=== PATIENT | female | born 1955 | race Caucasian/White ===

== ENCOUNTER → 2024-03-20 15:55 | Outpatient (REF) | payer MEDICARE, SELFPAY ==
[2024-03-20 14:25] LABS: % Basophils 0.2 % (0-2); % Immature Granulocytes 0.2 % (0-0.5); % Lymphocytes 28.3 % (20.5-51.1); % Monocytes 5.5 % (1.7-9.3); % Neutrophils 65.8 % (42.2-75.2); Absolute Lymphocytes 1.6 10^3/uL (1.2-3.4); Absolute Monocytes 0.3 10^3/uL (0.1-0.6); Absolute Neutrophils 3.6 10^3/uL (1.4-6.5); Hematocrit 43.7 % (37.0-47.0); Mean Corp Hgb Conc. 34.3 g/dL (33.0-37.0); Mean Corpuscular Hgb 29.2 pg (27.0-31.0); Mean Platelet Volume 9.4 fL (7.4-10.4); Platelet Count 207 10^3/uL (130-400); Red Blood Cell Count 5.14 10^6/uL (4.20-5.40); Red Cell Dist. Width 14.6 % (11.5-14.5); White Blood Cell Count 5.5 10^3/uL (4.8-10.8)
[2024-03-20 15:01] LABS: ALT (SGPT) 16 U/L (0-35); AST (SGOT) 29 U/L (14-36); Albumin 3.4 g/dl (3.5-5.0); Alkaline Phosphatase 50 U/L (38-126); Blood Urea Nitrogen 15 mg/dl (7-17); Calcium 9.3 mg/dl (8.4-10.2); Carbon Dioxide 27 mmol/L (22-30); Chloride 104 mmol/L (98-107); Glucose 163 mg/dl (70-99); Potassium 3.5 mmol/L (3.5-5.1); Sodium 138 mmol/L (135-145); Total Bilirubin 0.5 mg/dl (0.2-1.3); Total Protein 5.7 g/dl (6.3-8.2); eGFR > 60.00
== END ==
LOC: OIDL 15:55
PROVIDERS: ATTENDING PHYSICIAN Internal Medicine Hematology & Oncology
DX: C50.919 Malignant neoplasm of unspecified site of unspecified female breast (principal)
CPT/HCPCS: 80053; 85025

== ENCOUNTER → 2024-08-07 15:27 | Outpatient (REF) | payer MEDICARE, SELFPAY | LOC: WDC 15:27 | PROVIDERS: ATTENDING PHYSICIAN Family Medicine Geriatric Medicine; FAMILY PHYSICIAN Family Medicine | DX: Z12.31 Encounter for screening mammogram for malignant neoplasm of breast (principal); C50.411 Malignant neoplasm of upper-outer quadrant of right female breast; Z85.3 Personal history of malignant neoplasm of breast | CPT/HCPCS: 77063; 77067 ==

== ENCOUNTER → 2024-10-28 12:47 | Outpatient (REF) | payer MEDICARE, SELFPAY | LOC: RAD 12:47 | PROVIDERS: ATTENDING PHYSICIAN Pediatrics; FAMILY PHYSICIAN Family Medicine | DX: L50.1 Idiopathic urticaria (principal); R53.83 Other fatigue | CPT/HCPCS: 71046 ==

== ENCOUNTER → 2024-11-28 09:35 | Outpatient (REF) | payer MEDICARE, SELFPAY | LOC: RAD 09:35 | PROVIDERS: ATTENDING PHYSICIAN Internal Medicine Hematology & Oncology; FAMILY PHYSICIAN Family Medicine | DX: C50.919 Malignant neoplasm of unspecified site of unspecified female breast (principal); M85.80 Other specified disorders of bone density and structure, unspecified site; M81.0 Age-related osteoporosis without current pathological fracture; E78.2 Mixed hyperlipidemia; I10 Essential (primary) hypertension | CPT/HCPCS: 77080 ==

== ENCOUNTER 2025-01-24 17:42 | Inpatient (IN) | payer MEDICARE, SELFPAY ==
[2025-01-24 11:27] VITALS: BP 148/92
[2025-01-24 11:51] LABS: % Basophils 0.1 % (0-2); % Immature Granulocytes 0.2 % (0-0.5); % Lymphocytes 29.5 % (20.5-51.1); % Monocytes 6.4 % (1.7-9.3); % Neutrophils 63.8 % (42.2-75.2); Absolute Lymphocytes 2.8 10^3/uL (1.2-3.4); Absolute Monocytes 0.6 10^3/uL (0.1-0.6); Hematocrit 51.3 % (37.0-47.0); Hemoglobin 17.3 g/dL (12.0-16.0); Mean Corp Hgb Conc. 33.7 g/dL (33.0-37.0); Mean Corpuscular Hgb 28.4 pg (27.0-31.0); Mean Corpuscular Volume 84.2 fL (81.0-99.0); Mean Platelet Volume 9.7 fL (7.4-10.4); Nucleated Red Blood Cells % 0 %; Platelet Count 281 10^3/uL (130-400); Red Blood Cell Count 6.09 10^6/uL (4.20-5.40); Red Cell Dist. Width 13.8 % (11.5-14.5); White Blood Cell Count 9.5 10^3/uL (4.8-10.8)
[2025-01-24 12:07] LABS: ALT (SGPT) 22 U/L (0-35); AST (SGOT) 30 U/L (14-36); Albumin 4.4 g/dl (3.5-5.0); Alkaline Phosphatase 65 U/L (38-126); Blood Urea Nitrogen 19 mg/dl (7-17); Carbon Dioxide 32 mmol/L (22-30); Chloride 98 mmol/L (98-107); Glucose 155 mg/dl (70-99); Potassium 3.3 mmol/L (3.5-5.1); Sodium 142 mmol/L (135-145); Total Bilirubin 0.7 mg/dl (0.2-1.3); Total Protein 7.4 g/dl (6.3-8.2); eGFR > 60.00
--- NOTE | 2025-01-24 12:54 | ED.GENMED ---
History of Present Illness
General
Chief Complaint: Change in Mental Status
Time Seen by Provider: 01/24/25 12:42
History of Present Illness
History of Present Illness:
Patient is a 70-year-old woman with history of hypertension, hyperlipidemia presenting to the emergency department with a change in her mental status. Per patient's son and ex- who are at bedside they state for the past few months they have
noticed intermittent issues with her memory. However about 5 days ago she had a sudden decline in her memory with confusion. She has been eating less as well. They noticed that she has been much more weak and has had recurrent falls as well. She
is not on a blood thinner. They went to her primary care doctor who thought that it could be related to a possible infection around her eye as she has been itching it and rubbing it with water. No fevers or chills. No vision changes per the
patient but patient is not a reliable historian. No nausea vomiting. No diarrhea. She has not had a workup for her memory loss in the outpatient setting. Unfortunately patient's son lives with patient is unable to take care of her given the
recurrent falls confusion and memory loss.
Past History
Past History
ED Past Medical History: GERD, HTN, Hypercholesterolemia, Hypothyroidism, Psychiatric (PTSD) and Other (colon polyps)
Social History
Tobacco: Non-smoker
Phy Exam
Physical Exam
Physical Exam:
GENERAL: in no acute distress
HEENT: normocephalic, extraocular movements intact, bilateral periorbital area dry slightly red, is not warm or edematous, moist oral mucosa
NECK: normal inspection
RESPIRATORY: no respiratory distress, clear to auscultation bilaterally
CARDIOVASCULAR: regular rate and rhythm
ABDOMEN/: soft, non-distended, left upper quadrant tenderness to palpation, no rebound or guarding
EXTREMITIES: non-tender, no edema/swelling, excoriations to the right upper extremity most notably with no associated warmth or drainage
NEUROLOGIC: awake and alert, moves all extremities
SKIN: warm
Course
Orders/Labs/Results
Orders:
Orders
01/24/25 11:35
Complete Blood Count/With Diff Urgent
Comprehensive Metabolic Panel Urgent
TSH Reflex To Free T4 Urgent
Comment: ADD ON
01/24/25 12:44
Electrocardiogram (*1) Urgent
Reason for Study: Other
Other Reason for Exam: mental status
EKG- Treatment ONCE
Urinalysis Reflex To Culture Urgent
01/24/25 12:54
CT Abd/pelvis W Iv Cont Urgent
Comment:
Reason For Exam: LUQ tender
CT Head W/o Iv Contrast Urgent
Comment:
Reason For Exam: ams
01/24/25 13:01
Add On- LAB Urgent
Tests Added?: TSH with relfex to T4
Abnormal Lab Results
01/24/25
11:35
RBC 6.09 H 10^6/uL
(4.20-5.40)
Hgb 17.3 H g/dL
(12.0-16.0)
Hct 51.3 H %
(37.0-47.0)
Potassium 3.3 L mmol/L
(3.5-5.1)
Carbon Dioxide 32 H mmol/L
(22-30)
BUN 19 H mg/dl
(7-17)
Glucose 155 H mg/dl
(70-99)
01/24/25 11:35
01/24/25 11:35
Vital Signs
Initial and Last Documented VS:
Initial Vital Signs
Temp Pulse Resp BP Pulse Ox
98.1 F 98 18 148/92 99
01/24/25 11:27 01/24/25 11:27 01/24/25 11:27 01/24/25 11:27 01/24/25 11:27
Last Documented Vital Signs
Temp Pulse Resp BP Pulse Ox
98.1 F 89 22 134/70 97
01/24/25 11:27 01/24/25 13:33 01/24/25 13:33 01/24/25 13:13 01/24/25 13:33
MDM/Problems Addressed
Differential Diagnosis Includes:
Patient is a 70-year-old woman presenting to the emergency department with a change in her mental status that acutely worsened for the past 5 days. Vitals are unremarkable and exam does show left upper quadrant tenderness to palpation as well as
dry slightly irritated/red periorbital areas. It does not look infected on exam. Will check blood work EKG urine and CT scan. Given the sudden change in her confusion and memory patient will need admission for further workup.
*Critical Care Note
Total Time (30-74mins, 75-104mins- exclusive of procedures): Not Applicable
Update Note
Update Note:
Blood work unremarkable. CT scan of the head with chronic lacunar infarct. Patient has not had a stroke workup completed in the past. CT abdomen pelvis negative. EKG per my interpretation normal sinus rhythm. Given patient's change in mental
status has not worsening with past 5 to 6 days patient will need admission for further workup. Discussed with hospitalist who excepted. Thyroid and urine pending
ED Attending Note
-
Portions of this chart may have been created with voice recognition software.� Occasional wrong word or��sound alike� substitutions may have occurred due to the inherent limitations of voice recognition software.
Discharge Plan
Departure
Patient Disposition: Admit
Date of Disposition: 01/24/25
Time of Disposition: 15:26
Presentation/result/management discussed w/ accepting MD/DO: Hospitalist
Discharge Problem:
Change in mental status
Prescriptions:
No Action
levothyroxine 25 MCG tablet
25 mcg PO DAILY
multivitamin with folic acid [Tab-A-Mata] 1 TABLET tablet
1 tab PO DAILY
cetirizine 10 mg Tablet
10 mg PO DAILY
fexofenadine 180 mg Tablet
180 mg PO DAILYPRN PRN (Reason: itching/allergies)
amlodipine 5 mg tablet
5 mg PO DAILY
calcium carbonate 400 mg calcium (1,000 mg) Tablet,Chewable
400 mg PO DAILY
hydrochlorothiazide 12.5 mg capsule
12.5 mg PO DAILY
coenzyme Q10 [Co Q-10] 100 mg Capsule
100 mg PO DAILY
rosuvastatin 5 mg tablet
5 mg PO DAILY
cholecalciferol (vitamin D3) 50 mcg (2,000 unit) Tablet
50 mcg PO DAILY
omega 8-mzk-gpi-fish oil [Fish Oil] 1,000 (120-180) mg Capsule
1 cap PO DAILY
Dupixent Syringe 300 mg/2 mL syringe
300 mg SC Q2W
Referrals:
Darryl Britton, DO [Family Provider] -
Interventions
Interventions:
*Risk Screen - Suicide Last Done: 01/24/25 11:27
*General Assessment Last Done: 01/24/25 11:27
*ED COVID-19 Vaccine History Last Done: 01/24/25 11:27
ED- Neurological Assessment Last Done: 01/24/25 13:38
Discharge Date and Time
Print Language: [place]
[2025-01-24 13:13] VITALS: BP 134/70
--- NOTE | 2025-01-24 16:34 | HPS.HSE ---
Family Physician
-
Family Physician: Darryl Britton
Chief Complaint
-
AMS
History of Present Illness
Patient 70 years old female with history of hypertension, hyperlipidemia hypothyroidism, GERD, PTSD, came into hospital with mental status. By the time of my evaluation patient seems alert and disoriented and knows where she is at but does not know
why she is here. Per ED on discussion with Nataliya she has been having some memory issues over the last 5 days with increased confusion. There was mention of also some infection around the eye. In the ER vital signs stable, normal WBC, hemoglobin
17, potassium 3.3, BUN [address] head shows no acute intracranial abnormalities but moderate white matter hypoattenuation likely sequela of microvascular ischemic disease and small chronic lacunar infarct within the left basal
ganglia. She was referred to hospitalist service for further evaluation.
Medical History
Past Medical History
Past Medical History: Reports Other (Hypertension, hyperlipidemia, GERD, PTSD, probable silent strokes in the past, asthma, breast cancer, obesity, mild aortic stenosis, prediabetes, rash.)
Past Surgical History: Reports Other (Lasix surgery, tonsillectomy, adenoidectomy, sinus surgery, breasts biopsy, left lumpectomy.)
Social History
Tobacco: Non-smoker
Alcohol: None
Drug: None
Family History
Family History: Not pertinent
Allergies / Home Medications
Allergies reflects when Allergies were last updated in [facility].
Home Medications with original date entered in [facility]
Allergy/Medication List:
Allergies
Allergy/AdvReac Type Severity Reaction Status Date / Time
cortisone Allergy hyperactivi Verified 01/24/25 11:31
ty
Sulfa (Sulfonamide Allergy Rash Verified 01/24/25 11:31
Antibiotics)
tobacco Allergy Anaphylaxis Uncoded 01/24/25 11:31
Home Medications
levothyroxine 25 mcg tablet 25 mcg PO DAILY 12/21/18
multivitamin with folic acid 400 mcg tablet (Tab-A-Mata) 1 tab PO DAILY 12/21/18
amlodipine 5 mg tablet 5 mg PO DAILY 01/24/25
calcium carbonate 400 mg PO DAILY 01/24/25
cetirizine 10 mg tablet 10 mg PO DAILY 01/24/25
cholecalciferol (vitamin D3) 50 mcg (2,000 unit) tablet 50 mcg PO DAILY 01/24/25
coenzyme Q10 100 mg capsule (Co Q-10) 100 mg PO DAILY 01/24/25
dupilumab 300 mg/2 mL subcutaneous syringe (Dupixent) 300 mg SC Q2W 01/24/25
fexofenadine 180 mg tablet 180 mg PO DAILYPRN PRN itching/allergies 01/24/25
hydrochlorothiazide 12.5 mg capsule 12.5 mg PO DAILY 01/24/25
omega 5-pds-rin-fish oil 1,000 mg (120 mg-180 mg) capsule (Fish Oil) 1 cap PO DAILY 01/24/25
rosuvastatin 5 mg tablet 5 mg PO DAILY 01/24/25
Review of Systems
-
Unable to obtain full review of systems at this time due to: Dementia (Versus mental status changes)
Physical Exam
Vital Signs
Vital Signs
Temp Pulse Resp BP Pulse Ox
98.1 F 89 22 134/70 97
01/24/25 11:27 01/24/25 13:33 01/24/25 13:33 01/24/25 13:13 01/24/25 13:33
Physical exam:
General: Well Developed, Well Nourished and No Apparent Distress
HEENT: Normocephalic, Atraumatic and Moist Mucous Membranes
Respiratory: Clear to Auscultation; Negative Wheezes, Rales or Rhonchi
Cardiac: Regular Rhythm and S1/S2
GI: Soft, Nontender and Nondistended
Musculoskeletal: No Clubbing, No Cyanosis and No Edema
Skin: Generalized pustular rash
Neuro: Awake, Alert and disoriented, left upper and lower extremity mild weakness, left foot drop, increased tone, bradykinesia+
Psych: Calm
Physical Exam
General: Other
Laboratory Results
-
01/24/25 11:35
01/24/25 11:35
Laboratory Results
Total Bilirubin 0.7 mg/dl (0.2-1.3) 01/24/25 11:35
AST 30 U/L (14-36) 01/24/25 11:35
ALT 22 U/L (0-35) 01/24/25 11:35
Alkaline Phosphatase 65 U/L (38-126) 01/24/25 11:35
Data Reviewed
-
CT Scan: Image Personally Visualized and interpreted
Lab Data: Labs Reviewed by me
Impression/Plan
-
IMPRESSION:
Patient 70 years old female with multiple comorbidities came into the hospital with altered mental status. Altered neurostatus of unclear etiology at increased risk of morbidity and mortality and further workup required as inpatient.
PLAN:
Acute mental status changes:
Unclear etiology but rule out stroke versus cognitive deficits related vs toxic metabolic encephalopathy versus other
Possibility of Parkinson's
Monitor neurological status and NIH
Seen CT scan of the head and some abnormalities consistent with stroke but unclear if chronic or subacute
Neurology consult for further eval-discussed with neurology via [place] text today
Gentle hydration
Plan for MRI of the brain
Start ASA
Check fasting lipids
PT OT SP eval
TSH normal
Check B12 and folate level
Hypertension:
Resume antihypertensives when accurate list of medications
Hypothyroidism:
Resume thyroid replacement when accurate list of medications
Hyperlipidemia:
Resume statins when accurate list of medications
Rash:
Appears to be chronic in nature
DVT prophylaxis:
Lovenox SQ
CODE STATUS:
Full code
Time spent 75 minutes
--- NOTE | 2025-01-24 17:26 | CON.NEURO ---
Neuro Assessment/Plan
Assessment
patient with several months of cognitive impairment, 5 days ago sudden worsening, with falls
exam consistent with Alz at least moderate severity, Parkinsonism, and left facial droop/hemiparesis/foot drop which does not match the left anterior internal capsule stroke
suspect she may have had a stroke 5 days ago that caused her to decompensate
head CT images and report rev'd, moderate atrophy, chronic L anterior internal capsule stroke
Plan
ASA 324 now + 81 mg daily
MRI brain without contrast, MRA head/neck
lipid panel, folate, B12
Consultation
Order
Date of Consultation: 01/24/25
Requesting Provider: Conner Russo
Reason for Consult: memory loss
Subjective/Objective
Subjective Data
Date of Service: January 24, 2025
from ED notes:
Patient is a 70-year-old woman with history of hypertension, hyperlipidemia presenting to the emergency department with a change in her mental status. Per patient's son and ex- who are at bedside they state for the past few months they have
noticed intermittent issues with her memory. However about 5 days ago she had a sudden decline in her memory with confusion. She has been eating less as well. They noticed that she has been much more weak and has had recurrent falls as well. She
is not on a blood thinner. They went to her primary care doctor who thought that it could be related to a possible infection around her eye as she has been itching it and rubbing it with water. No fevers or chills. No vision changes per the
patient but patient is not a reliable historian. No nausea vomiting. No diarrhea. She has not had a workup for her memory loss in the outpatient setting. Unfortunately patient's son lives with patient is unable to take care of her given the
recurrent falls confusion and memory loss.
Patient admits to a little bit of memory loss, says she does basic ADLs and spends her days watching TV, does not help with chores, denies that the rollator in the room is hers, denies recent falls, denies speech changes, weakness, or numbness
Objective Data
Vital Signs
Temp Pulse Resp BP Pulse Ox
36.7 C 89 22 134/70 97
01/24/25 11:27 01/24/25 13:33 01/24/25 13:33 01/24/25 13:13 01/24/25 13:33
Lab Results
01/24/25 11:35
01/24/25 11:35
Sodium 142 mmol/L (135-145) 01/24/25 11:35
Potassium 3.3 mmol/L (3.5-5.1) L 01/24/25 11:35
BUN 19 mg/dl (7-17) H 01/24/25 11:35
Glucose 155 mg/dl (70-99) H 01/24/25 11:35
Calcium 10.0 mg/dl (8.4-10.2) 01/24/25 11:35
Patient Allergies
cortisone Allergy (Verified 01/24/25 11:31)
hyperactivity
Sulfa (Sulfonamide Antibiotics) Allergy (Verified 01/24/25 11:31)
Rash
tobacco Allergy (Uncoded 01/24/25 11:31)
Anaphylaxis
CVA Assessment
Onset of Stroke Symptoms
Onset of symptoms known: No
NIH Stroke Score
Level of Consciousness: 0 - Alert
LOC Questions: 2-Neither correct
LOC Commands: 0-Performs both correctly
Best Horizontal Gaze: 0-Normal
Visual Foreman: 0=Normal, no visual loss
Facial Palsy: 2=Partial paralysis
Motor - Right Arm: 0=No drift 10 seconds
Motor - Left Arm: 1=Drift < 10 seconds
Motor - Right Le-No drift 5 seconds
Motor - Left Le-Drift < 5 seconds
Limb Ataxia: 0-Absent
Sensation: 0-Normal
Best Language: 0-No aphasia
Dysarthria: 0-Normal
Extinction and Inattention: 0-No abnormality
Total Score:: 6
Physical Exam
-
awake and alert, disoriented to age/month, speech clear, poor recollection of recent events, processing speed quick
VFF, EOMI, left facial droop
LUE/LE 4/5 with foot drop; right side full strength
sensation intact touch/pin
DTR diffusely 1+
+cogwheel rigidity, + bradykinesia
Medications
-
Active Medications
Generic Name Dose Route Start Last Admin
Trade Name Freq PRN Reason Stop Dose Admin
Aspirin 81 mg 01/25/25 08:00
Aspirin 81 Mg (Enteric Coated) Tablet PO 02/22/25 07:59
DAILY KALINA
Aspirin 324 mg 01/24/25 17:23
Aspirin 81 Mg Chewable Tablet PO 01/24/25 17:24
NOW STA
Home Medications
�Medication �Instructions �Recorded
levothyroxine 25 mcg tablet 25 mcg PO DAILY 12/21/18
multivitamin with folic acid 400 1 tab PO DAILY 12/21/18
mcg tablet (Tab-A-Mata)
amlodipine 5 mg tablet 5 mg PO DAILY 01/24/25
calcium carbonate 400 mg PO DAILY 01/24/25
cetirizine 10 mg tablet 10 mg PO DAILY 01/24/25
cholecalciferol (vitamin D3) 50 50 mcg PO DAILY 01/24/25
mcg (2,000 unit) tablet
coenzyme Q10 100 mg capsule (Co 100 mg PO DAILY 01/24/25
Q-10)
dupilumab 300 mg/2 mL subcutaneous 300 mg SC Q2W 01/24/25
syringe (Dupixent)
fexofenadine 180 mg tablet 180 mg PO DAILYPRN PRN 01/24/25
itching/allergies
hydrochlorothiazide 12.5 mg capsule 12.5 mg PO DAILY 01/24/25
omega 2-gla-zuf-fish oil 1,000 mg 1 cap PO DAILY 01/24/25
(120 mg-180 mg) capsule (Fish Oil)
rosuvastatin 5 mg tablet 5 mg PO DAILY 01/24/25
[2025-01-24] MEDS: LOW STRENGTH ASPIRIN 324 MG PO (17:54)
[2025-01-24 18:27] VITALS: BP 138/72
[2025-01-24 18:34] VITALS: BMI 28.9
[2025-01-24] MEDS: LOVENOX 40 MG SC (19:17)
[2025-01-24] MEDS: NSS 1000 IV (19:17)
[2025-01-24 19:22] VITALS: BP 130/70
[2025-01-24 21:04] LABS: Folate > 20.0 ng/ml (2.76-20); Vitamin B12 < 159 pg/ml (239-931)
[2025-01-24 23:26] VITALS: BP 135/71
[2025-01-24] MEDS: CYANOCOBALAMIN 1000 MCG IM (23:50)
[2025-01-25] MEDS: REFRESH EYE DROPS (PF) 1 DROPS OPHTH (00:49)
[2025-01-25 00:56] LABS: Urine Albumin 1+ (Neg - Trace); Urine Bilirubin Negative (Negative); Urine Character Clear (Clear); Urine Color Yellow; Urine Glucose Negative (Negative); Urine Ketone 2+ (Negative); Urine Leukocyte 1+ (Negative); Urine Nitrite Negative (Negative); Urine Occult Blood 1+ (Negative); Urine Urobilinogen 1+ (Neg - 1+)
[2025-01-25 01:48] LABS: Urine Squamous Cell >30 /LPF (Few)
[2025-01-25 01:49] LABS: Urine Bacteria Moderate (Negative); Urine Calcium Oxalate Crystals Seen; Urine Mucus Moderate; Urine Red Blood Cell 0-2 /HPF (0-2)
[2025-01-25 03:20] VITALS: BP 135/80
[2025-01-25 07:00] LABS: Hematocrit 48.3 % (37.0-47.0); Hemoglobin 16.7 g/dL (12.0-16.0); Mean Corp Hgb Conc. 34.6 g/dL (33.0-37.0); Mean Corpuscular Hgb 28.4 pg (27.0-31.0); Mean Platelet Volume 9.8 fL (7.4-10.4); Platelet Count 251 10^3/uL (130-400); Red Blood Cell Count 5.89 10^6/uL (4.20-5.40); Red Cell Dist. Width 13.8 % (11.5-14.5); White Blood Cell Count 11.7 10^3/uL (4.8-10.8)
[2025-01-25 07:25] VITALS: BP 121/62
[2025-01-25 07:28] LABS: Blood Urea Nitrogen 13 mg/dl (7-17); Calcium 9.3 mg/dl (8.4-10.2); Carbon Dioxide 24 mmol/L (22-30); Chloride 101 mmol/L (98-107); Estimated Creatinine Clearance 86 ml/min; Glucose 145 mg/dl (70-99); HDL Cholesterol 43 mg/dl; LDL Cholesterol, Calculated 52 mg/dl; Potassium 3.3 mmol/L (3.5-5.1); Sodium 139 mmol/L (135-145); Total Cholesterol 134 mg/dl (50-199); Triglyceride 198 mg/dl (10-149); Very Low Density Lipoprotein 39 mg/dl (0-30); eGFR > 60.00
[2025-01-25] MEDS: ASPIR LOW (ENTERIC COATED) 81 MG PO (09:10)
[2025-01-25] MEDS: KCL 40 MEQ PO ×2 (09:10→13:06)
--- NOTE | 2025-01-25 09:23 | W.PN.HOSP.TC ---
Addendum entered and electronically signed by Conner Russo MD 01/25/25 13:53:
Discussed with ex- and friend and gather more information. She has been having decline for years superimposed over the last 5 days. I came and discussed with patient and family along with neurologist at bedside. MRI of the brain abnormal
and plan is to repeat MRI with gadolinium for further characterization.
Original Note:
Today's Communication/Plan
-
MRI of the brain. IV antibiotics.
Assessment / Plan
Assessment / Plan
Physical exam:
General: Well Developed, Well Nourished and No Apparent Distress
HEENT: Normocephalic, Atraumatic and Moist Mucous Membranes
Respiratory: Clear to Auscultation; Negative Wheezes, Rales or Rhonchi
Cardiac: Regular Rhythm and S1/S2
GI: Soft, Nontender and Nondistended
Musculoskeletal: No Clubbing, No Cyanosis and No Edema
Skin: Generalized pustular rash
Neuro: Awake, Alert and disoriented, left upper and lower extremity mild weakness, left foot drop, increased tone, bradykinesia+
Psych: Calm
A/P:
Acute mental status changes:
Unclear etiology but rule out stroke versus cognitive deficits related vs toxic metabolic encephalopathy versus other
Possibility of Parkinson's
Monitor neurological status and NIH
Seen CT scan of the head and some abnormalities consistent with stroke but unclear if chronic or subacute
Neurology consult for further eval-discussed with neurology via [place] text today
Gentle hydration
Plan for MRI of the brain
Started ASA
Check fasting lipids
PT OT SP eval
Abnormal UA, probable UTI:
Start IV ceftriaxone
WBC up to 11.7
Follow-up cultures
Vitamin B12 deficiency:
Started B12 supplementation
Conjunctivitis:
Tobramycin eye drop
Hypertension:
Resume antihypertensives but hold hctz due to hypokalemia
Hypokalemia:
Replete and trend
Hypothyroidism:
Resume thyroid replacement
tsh ok
Hyperlipidemia:
Resume statins
Rash:
Appears to be chronic in nature
Resume zyrtec
DVT prophylaxis:
Lovenox SQ
CODE STATUS:
Full code
Total time spent on today's encounter was 52 minutes which included time spent in counseling the patient/family regarding diagnosis and treatment plan as listed above, goals of care, and symptom management. Case was discussed with nursing staff,
specialists, and care coordinators/case management. All labs and imaging personally reviewed by me. Remainder the time spent in detailed review of previous records, lab data, imaging, and other medical provider documentation.
Anticipated Discharge: > 48 hours
Subjective/Interval History
-
Date of Service: January 25, 2025
Alert but mildly disoriented. Afebrile
Objective Data
-
Labs:
Laboratory Results
01/25/25
06:32
WBC 11.7 H
Hgb 16.7 H
Hct 48.3 H
Plt Count 251
Sodium 139
Potassium 3.3 L
Chloride 101
Carbon Dioxide 24
BUN 13
Creatinine 0.6
Glucose 145 H
Calcium 9.3
Vital Signs:
Vital Signs
Temp Pulse Resp BP Pulse Ox
98.9 F 98 16 121/62 97
01/25/25 07:25 01/25/25 07:25 01/25/25 07:25 01/25/25 07:25 01/25/25 07:25
I&O
01/24/25 01/25/25 01/26/25
06:59 06:59 06:59
Intake Total 240 / 240
Balance 240 / 240
[2025-01-25] MEDS: NSS (PRESERVATIVE FREE) 0.5 ML IV ×2 (09:48→15:41)
[2025-01-25] MEDS: ATIVAN 1 MG IV ×2 (09:48→13:51)
[2025-01-25] MEDS: ROCEPHIN 1000 MG IV (11:06)
[2025-01-25] MEDS: VITAMIN D3 (cholecalciferol) 50 MCG PO (11:08)
[2025-01-25] MEDS: VITAMIN B-12 1000 MCG PO (11:08)
[2025-01-25] MEDS: CRESTOR 5 MG PO (11:08)
[2025-01-25] MEDS: STERILE WATER FOR INJECTION 10 ML IV ×2 (11:08→13:51)
[2025-01-25] MEDS: ZYRTEC 10 MG PO (11:08)
[2025-01-25 11:19] VITALS: BP 146/71
[2025-01-25] MEDS: SYNTHROID 25 MCG PO (11:29)
[2025-01-25] MEDS: TOBREX 0.3% EYE DROPS 1 DROP OPHTH ×3 (12:53→22:16)
--- NOTE | 2025-01-25 13:46 | PTOTSP ---
Speech Therapy
Presentation: Patient was partially oriented and alert. Patient followed simple commands. Patient's speech and language appeared to be short in length but WNL.
Swallowing Function: Patient was observed with several bites of regular consistency solids and sips of thin liquids in which patient appeared to tolerate as she did not exhibit any overt clinical s/sx of aspiration or difficulty with mastication/
manipulation. Patient denied any dysphagia complaints.
Patient appears to be demonstrating lack of insight as she expressed she is not having memory difficulty or trouble with ADLs. However, per discussion with her son, patient is having difficulty with sequencing and remembering to complete ADLs
(showering, feeding). Patient is forgetting to eat throughout the day and then eating impulsively which may cause her to vomit. Patient's memory difficulties have been occurring for over a month and increased in the past 5 days. Patient's son
recalls patient demonstrating 'slurred speech and right sided facial droop' which resolved within 20 seconds approximately 3-6 weeks ago.
Recommendations:
1) Continuation of regular consistency solids and thin liquids
2) Medications as tolerated
3) Consideration of cognitive evaluation
4) Consideration of speech/ language evaluation
Plan: HR SYSTEMS ANALYST will continue to follow; pending hospitalization.
--- NOTE | 2025-01-25 13:55 | W.PN.NEURO.1 ---
Today's Communication / Plan
-
MRI brain with contrast
Neuro Assessment/Plan
Assessment
patient with several months of cognitive impairment, 5 days ago sudden worsening, with falls
exam consistent with Alz at least moderate severity, Parkinsonism though these cannot be diagnosed in the accuse setting;
left facial droop/hemiparesis/foot drop which does not match the left anterior internal capsule stroke
MRI brain imgs and report reviewed 'There is extensive T2/FLAIR hyperintense signal within the bilateral periventricular white matter at the level of the atrium of the lateral ventricle involving the occipital, parietal and posterior right frontal
lobes as well as extending along the splenium of the corpus callosum. This appears to demonstrate peripherally restricted diffusion. '
Plan
81 mg daily for the chronic stroke
MRI brain with contrast
Subjective/Objective
Subjective Data
Date of Service: January 25, 2025
very sleepy today
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 she sleeps
most of the day wakes up for dinner and watches TV for a few hours
Objective Data
Vital Signs
Temp Pulse Resp BP Pulse Ox
37.1 C 100 17 146/71 96
01/25/25 11:19 01/25/25 11:19 01/25/25 11:19 01/25/25 11:19 01/25/25 11:19
Lab Results
01/25/25 06:32
01/25/25 06:32
Sodium 139 mmol/L (135-145) 01/25/25 06:32
Potassium 3.3 mmol/L (3.5-5.1) L 01/25/25 06:32
BUN 13 mg/dl (7-17) 01/25/25 06:32
Glucose 145 mg/dl (70-99) H 01/25/25 06:32
Calcium 9.3 mg/dl (8.4-10.2) 01/25/25 06:32
LDL Cholesterol, Calc 52 mg/dl 01/25/25 06:32
Vitamin B12 Cancelled 01/24/25 17:15
Patient Allergies
cortisone Allergy (Verified 01/24/25 11:31)
hyperactivity
Sulfa (Sulfonamide Antibiotics) Allergy (Verified 01/24/25 11:31)
Rash
tobacco Allergy (Uncoded 01/24/25 11:31)
Anaphylaxis
Physical Exam
-
disoriented to age/month, speech clear, poor recollection of recent events, processing speed quick
VFF, EOMI, left facial droop
LUE/LE 4/5 with foot drop; right side full strength
sensation intact touch/pin
DTR diffusely 1+
+cogwheel rigidity, + bradykinesia
[2025-01-25 15:41] VITALS: BP 136/79
[2025-01-25] MEDS: NSS IV (16:29)
[2025-01-25] MEDS: LOVENOX 40 MG SC (17:50)
[2025-01-25 19:17] VITALS: BP 143/85
[2025-01-25 23:53] VITALS: BP 138/80
[2025-01-26] MEDS: TOBREX 0.3% EYE DROPS 1 DROP OPHTH ×3 (00:51→20:59)
[2025-01-26 03:09] VITALS: BP 140/80
[2025-01-26] MEDS: SYNTHROID 25 MCG PO (06:26)
--- NOTE | 2025-01-26 07:18 | W.PN.HOSP.TC ---
Addendum entered and electronically signed by Conner Russo MD 01/26/25 13:03:
RN tells me she has not required restraints after ordering so will cancel and reeval
Original Note:
Today's Communication/Plan
-
Neurology reeval. Antibiotic. Psychiatry eval
Assessment / Plan
Assessment / Plan
Physical exam:
General: Acutely ill
HEENT: Normocephalic, Atraumatic and Moist Mucous Membranes. No neck rigidity
Respiratory: Clear to Auscultation; Negative Wheezes, Rales or Rhonchi
Cardiac: Regular Rhythm and S1/S2
GI: Soft, Nontender and Nondistended
Musculoskeletal: No Clubbing, No Cyanosis and No Edema
Skin: Generalized pustular rash
Neuro: Awake, Alert and disoriented, left lower extremity mild weakness, left foot drop, increased tone, bradykinesia+
Psych: Calm
A/P:
Acute mental status changes:
Unclear etiology but rule out stroke versus cognitive deficits related vs toxic metabolic encephalopathy versus ADEM vs MS vs other
MRI of the brain repeated with gadolinium and it shows possible tumefactive demyelination--> awaiting for neurology input.
Discussed with neurology if she needs LP but he said to hold on and will give further recommendations.
Will get psychiatry consult today since she is also requiring restraints-discussed with psychiatry via [place] text today.
Continue monitor neurological status
Continue ASA for stroke prevention
Checking fasting lipids
PT OT SP eval
Discussed with family at bedside today as well as RN and telephonic nurse case manager at bedside.
Abnormal UA, probable UTI:
Continue IV ceftriaxone
WBC 11.7--> 7.4
Follow-up cultures
Vitamin B12 deficiency:
Continue B12 supplementation
Conjunctivitis:
Tobramycin eye drop
Erythrocytosis:
Hemoconcentration versus ?polycythemia
Received IV fluid and Hb went down slightly
Monitor hemoglobin
Hypertension:
Resumed antihypertensives but hold hctz due to hypokalemia
Hypokalemia:
Replete and trend
Hypothyroidism:
Resume thyroid replacement
tsh ok
Hyperlipidemia:
Resume statins
Rash:
Appears to be chronic in nature
Resume zyrtec
She is on Dupixent as outpatient-hold for now until known infection status.
Per family she had skin biopsies in the past with no clear diagnosis.
DVT prophylaxis:
Lovenox SQ
CODE STATUS:
Full code
Total time spent on today's encounter was 52 minutes which included time spent in counseling the patient/family regarding diagnosis and treatment plan as listed above, goals of care, and symptom management. Case was discussed with nursing staff,
specialists, and care coordinators/case management. All labs and imaging personally reviewed by me. Remainder the time spent in detailed review of previous records, lab data, imaging, and other medical provider documentation.
Anticipated Discharge: > 48 hours
Subjective/Interval History
-
Date of Service: January 26, 2025
Patient alert but disoriented and agitated on and off. Remains afebrile.
Objective Data
-
Labs:
Laboratory Results
01/26/25
06:00
WBC Pending
Hgb Pending
Hct Pending
Plt Count Pending
Sodium Pending
Potassium Pending
Chloride Pending
Carbon Dioxide Pending
BUN Pending
Creatinine Pending
Glucose Pending
Calcium Pending
Vital Signs:
Vital Signs
Temp Pulse Resp BP Pulse Ox
97.6 F 100 18 140/80 96
01/26/25 03:09 01/26/25 03:09 01/26/25 03:09 01/26/25 03:09 01/26/25 03:09
I&O
01/25/25 01/26/25 01/27/25
06:59 06:59 06:59
Intake Total 240 / 240 480 / 480
Balance 240 / 240 480 / 480
[2025-01-26 07:30] VITALS: BP 126/79
[2025-01-26 08:41] LABS: % Basophils 0.1 % (0-2); % Immature Granulocytes 0.3 % (0-0.5); % Lymphocytes 30.5 % (20.5-51.1); % Monocytes 3.4 % (1.7-9.3); % Neutrophils 65.7 % (42.2-75.2); Absolute Lymphocytes 2.3 10^3/uL (1.2-3.4); Absolute Monocytes 0.3 10^3/uL (0.1-0.6); Absolute Neutrophils 4.9 10^3/uL (1.4-6.5); Hematocrit 47.6 % (37.0-47.0); Hemoglobin 16.3 g/dL (12.0-16.0); Mean Corp Hgb Conc. 34.2 g/dL (33.0-37.0); Mean Corpuscular Hgb 28.5 pg (27.0-31.0); Mean Corpuscular Volume 83.2 fL (81.0-99.0); Mean Platelet Volume 10.2 fL (7.4-10.4); Nucleated Red Blood Cells % 0 %; Platelet Count 229 10^3/uL (130-400); Red Blood Cell Count 5.72 10^6/uL (4.20-5.40); White Blood Cell Count 7.4 10^3/uL (4.8-10.8)
[2025-01-26] MEDS: VITAMIN B-12 1000 MCG PO (08:58)
[2025-01-26] MEDS: VITAMIN D3 (cholecalciferol) 50 MCG PO (08:58)
[2025-01-26] MEDS: NORVASC 5 MG PO (08:58)
[2025-01-26] MEDS: ASPIR LOW (ENTERIC COATED) 81 MG PO (08:58)
[2025-01-26] MEDS: OSCAL CAL 500 500 MG PO (08:58)
[2025-01-26] MEDS: CRESTOR 5 MG PO (09:01)
[2025-01-26 09:15] LABS: Blood Urea Nitrogen 15 mg/dl (7-17); Calcium 9.2 mg/dl (8.4-10.2); Carbon Dioxide 24 mmol/L (22-30); Chloride 106 mmol/L (98-107); Estimated Creatinine Clearance 86 ml/min; Glucose 141 mg/dl (70-99); Potassium 3.7 mmol/L (3.5-5.1); Sodium 141 mmol/L (135-145); eGFR > 60.00
[2025-01-26] MEDS: TOBREX 0.3% EYE DROPS 2 DROP OPHTH ×3 (10:11→17:36)
[2025-01-26] MEDS: ROCEPHIN 1000 MG IV (10:57)
[2025-01-26] MEDS: BENADRYL 12.5 MG IV (10:58)
[2025-01-26] MEDS: STERILE WATER FOR INJECTION 10 ML IV (10:58)
[2025-01-26 11:30] VITALS: BP 141/67
--- NOTE | 2025-01-26 12:00 | PTCARENOTE ---
at 10:00, IV team notified to place new IV access for IV Rocephin dose. at that time, patient scratching rash lesions on body and appeared uncomfortable. I requested b/l wrist restraint order from Dr. Russo to prevent patient from pulling out IV
access. at 1058, administered PRN Benadryl with good relief. patient able to be redirected and no restraints applied. sat oob in chair multiple times, vss, will continue to monitor.
[2025-01-26 13:46] LABS: Glycohemoglobin (HgbA1c) 6.7 % (4.0-5.6)
--- NOTE | 2025-01-26 13:58 | CM ---
Patient seen at bedside with ex- Damian & his current
Damian states he has been working with civil litigation attorney regards to POA
CM requested once finalized to provide copy
Per looking for LTC placement
Dx: encephalopathy
psychiatry eval, neurology to eval
PMH: hypertension, hyperlipidemia hypothyroidism, GERD, PTSD, came into hospital change ms, frequent falls
Patient lives in a 2 story home with her son
PLOF: Independent, walker
DME: [employer], walker
PT/OT/ST to eval
Denies VN/Rehab
PCP: Dr. Britton
Pharmacy: [facility] [address], [place]
PLAN: anticipate SNF, await PT/OT evals
--- NOTE | 2025-01-26 14:00 | W.PN.UPDATE ---
Update Note
Progress Note Update
Psychiatric evaluation dictated.
Patient presently is calm and out of restraints; she does not remember being agitated but staff report her thrashing about and pulling out iv tubes. She was unable to provide me with any history but her ex was informative. He noticed
beginnings of memory deficits starting 20 years ago but she deteriorated significantly over the past week. She live with her son she has to take care of her including washing her and taking care of her nutritional needs and personal hygiene. She
also cannot walk up stairs and keeps falling.
She saw a psychiatrist after she lost her job about 20 years ago and was apparently on numerous psychotropic meds which he does not recall. She also drank heavily for about five years but stopped on her own. He mother was diagnosed with
schizophrenia.
She has severe loss of immediate recall on mental status exam.
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
She is presently calm but I will order Ativan 1 mg q 6h prn for agitation. She will need placement in a supervised facility.
We will continue F/U.
[2025-01-26 16:00] VITALS: BP 131/69
[2025-01-26] MEDS: LOVENOX 40 MG SC (17:36)
[2025-01-26 18:29] LABS: Homocysteine 26 umol/L (0-15)
--- NOTE | 2025-01-26 19:45 | W.PN.NEURO.1 ---
Today's Communication / Plan
-
try Solumedrol 250 q5 x20 doses - noted prior hyperactivity, however with severity of illness would still try
LP tomorrow
spoke with ex- Damian primary contact re findings, plan for steroids, LP
patient no POA, not legally , next of kin would be [facility]
Neuro Assessment/Plan
Assessment
patient with several months of cognitive impairment, 5 days ago sudden worsening, with falls
exam consistent with Alz at least moderate severity, Parkinsonism though these cannot be diagnosed in the accute setting;
left facial droop/hemiparesis/foot drop which does not match the left anterior internal capsule stroke
MRI brain imgs and report reviewed 'There is extensive T2/FLAIR hyperintense signal within the bilateral periventricular white matter at the level of the atrium of the lateral ventricle involving the occipital, parietal and posterior right frontal
lobes as well as extending along the splenium of the corpus callosum. This appears to demonstrate peripherally restricted diffusion. '
MRI post contrast images and report rev'd, showing peripheral enhancement; lack of surrounding edema, favoring tumefactive demyelination over glioma;
Plan
try Solumedrol 250 q5 x20 doses - noted prior hyperactivity, however with severity of illness would still try
LP tomorrow
spoke with ex- Damian primary contact re findings, plan for steroids, LP
patient no POA, not legally , next of kin would be [facility]
Subjective/Objective
Subjective Data
Date of Service: January 26, 2025
no new complaints
Objective Data
Vital Signs
Temp Pulse Resp BP Pulse Ox
36.8 C 99 16 131/69 96
01/26/25 16:00 01/26/25 16:00 01/26/25 16:00 01/26/25 16:00 01/26/25 16:00
Lab Results
01/26/25 07:32
01/26/25 07:32
Sodium 141 mmol/L (135-145) 01/26/25 07:32
Potassium 3.7 mmol/L (3.5-5.1) 01/26/25 07:32
BUN 15 mg/dl (7-17) 01/26/25 07:32
Glucose 141 mg/dl (70-99) H 01/26/25 07:32
Calcium 9.2 mg/dl (8.4-10.2) 01/26/25 07:32
LDL Cholesterol, Calc 52 mg/dl 01/25/25 06:32
Vitamin B12 Cancelled 01/24/25 17:15
Patient Allergies
cortisone Allergy (Verified 01/24/25 11:31)
hyperactivity
Sulfa (Sulfonamide Antibiotics) Allergy (Verified 01/24/25 11:31)
Rash
tobacco Allergy (Uncoded 01/24/25 11:31)
Anaphylaxis
Physical Exam
-
disoriented to age/month, speech clear, poor recollection of recent events, processing speed quick
VFF, EOMI, left facial droop
LUE/LE 4/5 with foot drop; right side full strength
sensation intact touch/pin
DTR diffusely 1+
+cogwheel rigidity, + bradykinesia
[2025-01-26 20:20] VITALS: BP 138/68
[2025-01-26] MEDS: SOLU-MEDROL PF 250 MG IV (22:31)
[2025-01-26 23:33] VITALS: BP 136/66
[2025-01-27] MEDS: TOBREX 0.3% EYE DROPS 1 DROP OPHTH ×4 (00:24→15:34)
[2025-01-27] MEDS: SOLU-MEDROL PF 250 MG IV ×4 (02:00→20:55)
[2025-01-27] MEDS: ATIVAN 1 MG PO (02:06)
[2025-01-27] MEDS: TOBREX 0.3% EYE DROPS OPHTH (04:11)
[2025-01-27 06:06] LABS: % Basophils 0.1 % (0-2); % Immature Granulocytes 0.5 % (0-0.5); % Lymphocytes 11.8 % (20.5-51.1); % Monocytes 0.2 % (1.7-9.3); % Neutrophils 87.4 % (42.2-75.2); Absolute Neutrophils 7.6 10^3/uL (1.4-6.5); Hematocrit 45.4 % (37.0-47.0); Hemoglobin 15.6 g/dL (12.0-16.0); Mean Corp Hgb Conc. 34.4 g/dL (33.0-37.0); Mean Corpuscular Hgb 28.5 pg (27.0-31.0); Mean Platelet Volume 10.1 fL (7.4-10.4); Nucleated Red Blood Cells % 0 %; Platelet Count 216 10^3/uL (130-400); Red Blood Cell Count 5.47 10^6/uL (4.20-5.40); Red Cell Dist. Width 13.6 % (11.5-14.5); White Blood Cell Count 8.7 10^3/uL (4.8-10.8)
[2025-01-27] MEDS: SYNTHROID 25 MCG PO (06:26)
[2025-01-27 06:32] LABS: Blood Urea Nitrogen 13 mg/dl (7-17); Calcium 9.5 mg/dl (8.4-10.2); Carbon Dioxide 22 mmol/L (22-30); Chloride 105 mmol/L (98-107); Estimated Creatinine Clearance 86 ml/min; Glucose 229 mg/dl (70-99); Potassium 4.2 mmol/L (3.5-5.1); Sodium 141 mmol/L (135-145); eGFR > 60.00
[2025-01-27 07:30] VITALS: BP 128/74
[2025-01-27 07:34] LABS: INR 0.98; PT 13.3 Sec (11.4-14.6)
[2025-01-27] MEDS: NORVASC 5 MG PO (08:59)
[2025-01-27] MEDS: VITAMIN B-12 1000 MCG PO (08:59)
[2025-01-27] MEDS: CRESTOR 5 MG PO (08:59)
[2025-01-27] MEDS: VITAMIN D3 (cholecalciferol) 50 MCG PO (08:59)
[2025-01-27] MEDS: ASPIR LOW (ENTERIC COATED) 81 MG PO (08:59)
[2025-01-27] MEDS: OSCAL CAL 500 500 MG PO (09:00)
[2025-01-27] MEDS: ROCEPHIN 1000 MG IV (10:06)
[2025-01-27] MEDS: STERILE WATER FOR INJECTION 10 ML IV (10:07)
[2025-01-27 12:09] LABS: Glucose - Point of Care 287 mg/dl (70-99)
[2025-01-27] MEDS: NOVOLOG FLEXPEN-LOW RESISTANCE 3 UNITS SC ×2 (13:13→17:42)
[2025-01-27 13:35] VITALS: BP 138/70; BP_SYST 107
--- NOTE | 2025-01-27 13:39 | W.PN.HOSP.TC ---
Today's Communication/Plan
-
LP tomorrow
Assessment / Plan
Assessment / Plan
Impression:
70 years old female with hypertension hyperlipidemia presented with altered mental status of unclear etiology.� She has chronic decline for months but acutely decompensated recently.� Neurology on board.� MRI of the brain with tumefactive
demyelination.� Possible UTI on IV Rocephin awaiting for cultures.� Mental status improved, started on empiric dexamethasone.
For LP
Assessment/plan:
Acute mental status changes/acute metabolic encephalopathy
Unclear etiology but rule out stroke versus cognitive deficits related vs toxic metabolic encephalopathy versus ADEM vs MS vs other
MRI of the brain repeated with gadolinium and it shows possible tumefactive demyelination--> awaiting for neurology input.
Discussed with neurology if she needs LP but he said to hold on and will give further recommendations.
Will get psychiatry consult today since she is also requiring restraints-discussed with psychiatry via [place] text today.
Continue monitor neurological status
Continue ASA for stroke prevention
Checking fasting lipids
PT OT SP eval
Discussed with family at bedside today as well as RN and case packer and sealer at bedside.
For LP tomorrow
Check ammonia
Abnormal UA, probable UTI:
Continue IV ceftriaxone
WBC 11.7--> 7.4
Urine culture shows possible contaminant
Vitamin B12 deficiency:
Continue B12 supplementation
Conjunctivitis:
Tobramycin eye drop
Erythrocytosis:
Hemoconcentration versus ?polycythemia
Received IV fluid and Hb went down slightly
Monitor hemoglobin
Hypertension:
Resumed antihypertensives but hold hctz due to hypokalemia
Hypokalemia:
Replete and trend
Hypothyroidism:
Resume thyroid replacement
tsh within normal
History of hyperlipidemia
Continue statin
Rash:
Appears to be chronic in nature
Resume zyrtec
She is on Dupixent as outpatient-hold for now until known infection status.
Per family she had skin biopsies in the past with no clear diagnosis.
CODE STATUS: Full code
DVT prophylaxis: Lovenox
Diet: Cardiac diet
Family communication: Discussed with Ex- at bedside
Total time spent on today's encounter was 65 minutes which included time spent in counseling the patient/family regarding diagnosis and treatment plan as listed above, goals of care, and symptom management. Case was discussed with nursing staff,
specialists, and care coordinators/case management. All labs and imaging personally reviewed by me. Remainder the time spent in detailed review of previous records, lab data, imaging, and other medical provider documentation.
Anticipated Discharge: > 48 hours
Subjective/Interval History
-
Date of Service: January 27, 2025
Patient seen and examined at bedside by me today twice, early during morning rounds and later on met with family including ex- and his .
Improved mental status after starting steroids.
Elevated blood sugar, started on sliding scale.
Patient denies chest pain or shortness of breath.
More awake but not fully oriented.
Objective Data
-
Labs:
Laboratory Results
01/27/25 01/27/25
05:28 07:16
WBC 8.7
Hgb 15.6
Hct 45.4
Plt Count 216
PT 13.3
INR 0.98
Sodium 141
Potassium 4.2
Chloride 105
Carbon Dioxide 22
BUN 13
Creatinine 0.5 L
Glucose 229 H
Calcium 9.5
Vital Signs:
Vital Signs
Temp Pulse Resp BP Pulse Ox
97.6 F 97 18 128/74 96
01/27/25 07:30 01/27/25 07:30 01/27/25 07:30 01/27/25 07:30 01/27/25 07:30
I&O
01/26/25 01/27/25 01/28/25
06:59 06:59 06:59
Intake Total 480 / 480 840 / 840
Balance 480 / 480 840 / 840
Physical Exam
-
General: Comfortable
HEENT: Normocephalic, Atraumatic, Moist Mucous Membranes, No Ptosis, PERRLA and Nose Appears Normal
Respiratory: Rales and Non Labored Respirations
Cardiac: Regular Rhythm and S1/S2
Breast: Deferred by me
GI: Soft, Nontender, Nondistended and Normal Bowel Sounds
Genito-urinary: No Costovertebral Tender
Musculoskeletal: No Clubbing, No Cyanosis and No Edema
Skin: Rash (Diffuse maculopapular rash)
Neuro: Awake, AO x 3, No Motor Deficits and Other (Not fully oriented)
Psych: Calm and Confused
Data Reviewed
-
Diagnostic Radiology: Image personally visualized and interpreted and Report Reviewed by me
CT Scan: Image personally visualized and interpreted and Report Reviewed by me
Ultrasound: Image personally visualized and interpreted and Report Reviewed by me
MRI: Image personally visualized and interpreted and Report Reviewed by me
Medical Tests (Nuc Med, Echo etc): Image personally visualized and interpreted and Report Reviewed by me
Labs: Labs Reviewed by me
Old Records: Reviewed
[2025-01-27 14:21] VITALS: BP 122/65
--- NOTE | 2025-01-27 14:45 | CON.NEURO ---
Neuro Assessment/Plan
Assessment
patient with several months of cognitive impairment, 5 days ago sudden worsening, with falls
exam consistent with Alz at least moderate severity, Parkinsonism though these cannot be diagnosed in the accute setting;
left facial droop/hemiparesis/foot drop which does not match the left anterior internal capsule stroke
MRI brain imgs and report reviewed 'There is extensive T2/FLAIR hyperintense signal within the bilateral periventricular white matter at the level of the atrium of the lateral ventricle involving the occipital, parietal and posterior right frontal
lobes as well as extending along the splenium of the corpus callosum. This appears to demonstrate peripherally restricted diffusion. '
MRI post contrast images and report rev'd, showing peripheral enhancement; lack of surrounding edema, favoring tumefactive demyelination over glioma;
Plan
try Solumedrol 250 q5 x20 doses - noted prior hyperactivity, however with severity of illness would still try
LP tomorrow
spoke with ex- Damian primary contact re findings, plan for steroids, LP
patient no POA, not legally , next of kin would be sonChito
Consultation
Order
Date of Consultation: 01/27/25
Neurology follow-up note
HPI: This is a 70-year-old woman who presented to [facility] on January 24, 2025 with encephalopathy.
The patient reports no complaints.
According to Mr. Angel, patient's ex-spouse the patient has had progressive cognitive decline for the last several years but significantly worsened over the past 2 weeks.
On , she was unable to identify her clothing, location, or destination, and barely recognized her ex-. Her hygiene has become very poor, and she is now incontinent. The patient's mobility has drastically declined over the past 2
years, requiring her to use pinto or furniture for support when walking. She now needs assistance or a walker to ambulate.
For the past 18 months, Franny has been dealing with a condition (she had skin biopsy and is under care of Dr. Stock). She has been receiving Dupixent injections every two weeks for about 2 months, administered by her son. This treatment has
provided some relief from itching.
Ms. Angel has a history of MDD and PTSD as well as alcohol abuse. She was drinking heavily for about 5 years, but reportedly stopped around 2009. During that period, she experienced frequent falls, often hitting her head. She was reportedly
treated with heavy heavy antipsychotics 'as well as clonazepam and Ativan.
Brain MRI w/wo jayro(01/25/2025)�extensive T2/FLAIR hyperintense signal within the bilateral periventricular white matter at the level of the atrium of the lateral ventricle involving the occipital, parietal and posterior right frontal lobes as well
as extending along the splenium of the corpus callosum with peripheral enhancement and restriction DWI sequence.
PDMP�no recently prescribed medications
Labs: Vitamin B12�159, Hemoglobin A1c�6.7, normal sodium, creatinine,
CSF�protein�160, glucose�118, normal cell count.
PMH:prurigo nodularis? 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
PSH: LASIK surgery, tonsillectomy, L mastectomy, sinus surgery,
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
FH: mother, MGM-schizophrenia,
All: Cortisone, sulfas,
ROS: Constitutional: Negative. Negative for chills, fever and unexpected weight change.
Skin: Positive for rash
Neurological: Positive for encephalopathy, imbalance, negative for headache
General: Well developed. In no acute distress. Unkept
Cardio: Regular rate and rhythm without murmur. Extremities are without cyanosis or edema.
Neuro:
Mental Status: Alert, oriented to name, not to the age, date of , year, months. Knew the current president's name. Follows simple requests. Increased processing time. Poor attention and comprehension.
Cranial Nerves: Pupils are equally round and reactive to light. Horizontal EOMs full. Blink to threat bilaterally. No ptosis. No nystagmus. Face symmetric. Normal hearing AU. The palate elevated well. SCMs and traps 5/5. Tongue midline.
No dysarthria.
Motor: Moves all limbs antigravity purposefully
Reflexes: Negative grasp bilaterally
Sensory: Limited exam due to breath
Coordination: No tremors myoclonic movements
Gait: deferred
Assessment and Plan:
I. Chronic progressive encephalopathy (metabolic, toxic,?demyelinating)
II. Subcortical bilateral occipital, parietal frontal as well as corpus callosum enhancing signal abnormality. Differential diagnosis includes demyelinating versus neoplastic versus infectious. Dupilumab has been published to be associated with
[employer] demyelination. https://pmc.ncbi.nlm.nih.gov/articles/VUL5075493/
III. B12 deficiency
IV. MDD, PTSD, history of EtOH use disorder
-Fall precautions
-Follow-up CSF OCB, MBB, cytology
-Please obtain CA�T spine MRI with and without jayro
-Check MS mimickers
-Continue IV steroids
-Would hold Dupilumab therapy for now
-Start IV Thiamine after drawing vitamin B1 level
-Continue parenteral vitamin B12
-Will follow
I personally reviewed all radiology and labs along with past medical records pertinent to current medical problems. Total time spent in patient care is 60 minutes.
Thank you for allowing us to participate in the care of this patient. We will continue to follow. Please do not hesitate to contact us with any questions or concerns.
Subjective/Objective
Subjective Data
Date of Service: January 27, 2025
Objective Data
Vital Signs
Temp Pulse Resp BP Pulse Ox
36.6 C 112 18 122/65 95
01/27/25 13:35 01/27/25 14:21 01/27/25 14:21 01/27/25 14:21 01/27/25 13:35
Lab Results
01/27/25 05:28
01/27/25 05:28
PT 13.3 Sec (11.4-14.6) 01/27/25 07:16
INR 0.98 01/27/25 07:16
Sodium 141 mmol/L (135-145) 01/27/25 05:28
Potassium 4.2 mmol/L (3.5-5.1) 01/27/25 05:28
BUN 13 mg/dl (7-17) 01/27/25 05:28
Glucose 229 mg/dl (70-99) H 01/27/25 05:28
Calcium 9.5 mg/dl (8.4-10.2) 01/27/25 05:28
LDL Cholesterol, Calc 52 mg/dl 01/25/25 06:32
Vitamin B12 Cancelled 01/24/25 17:15
Patient Allergies
cortisone Allergy (Verified 01/24/25 11:31)
hyperactivity
Sulfa (Sulfonamide Antibiotics) Allergy (Verified 01/24/25 11:31)
Rash
tobacco Allergy (Uncoded 01/24/25 11:31)
Anaphylaxis
Medications
-
Active Medications
Generic Name Dose Route Start Last Admin
Trade Name Freq PRN Reason Stop Dose Admin
Amlodipine Besylate 5 mg 01/26/25 08:00 01/27/25 08:59
Amlodipine 5 Mg Tablet PO 02/23/25 07:59 5 mg
DAILY KALINA Administration
Artificial Tears 1 drops 01/25/25 00:27 01/25/25 00:49
Artificial Tears Pf (Refresh) 10 Drop Droperette OPHTH 02/22/25 00:26 1 drops
QIDPRN PRN Administration
dryness
Aspirin 81 mg 01/25/25 08:00 01/27/25 08:59
Aspirin 81 Mg (Enteric Coated) Tablet PO 02/22/25 07:59 81 mg
DAILY KALINA Administration
Bisacodyl 10 mg 01/24/25 18:25
Bisacodyl 10 Mg Rectal Suppository RECTAL 02/21/25 18:24
[id number] PRN
constipation
Calcium Carbonate 500 mg 01/26/25 08:00 01/27/25 09:00
Calcium Carbonate 500 Mg Tablet PO 02/23/25 07:59 500 mg
DAILY KALINA Administration
Ceftriaxone Sodium 1,000 mg 01/25/25 10:00 01/27/25 10:06
Ceftriaxone 1000 Mg / 10 Ml Vial IV 1,000 mg
Q24H KALINA Administration
Cetirizine HCl 10 mg 01/25/25 10:00 01/25/25 11:08
Cetirizine Hcl 10 Mg Tablet PO 02/22/25 09:59 10 mg
DAILY KALINA Administration
Cholecalciferol 50 mcg 01/25/25 10:00 01/27/25 08:59
Cholecalciferol (Vitamin D3) 50 Mcg Tablet (2,000 Units) PO 02/22/25 09:59 50 mcg
DAILY KALINA Administration
Cyanocobalamin 1,000 mcg 01/25/25 10:00 01/27/25 08:59
Cyanocobalamin 1,000 Mcg Tablet PO 02/22/25 09:59 1,000 mcg
DAILY KALINA Administration
Dextrose 12.5 grams 01/27/25 11:00
Dextrose 50% (0.5 Grams/Ml) 50 Ml Syringe IV 02/24/25 10:59
[id number] PRN
hypoglycemia
Protocol
Diphenhydramine HCl 12.5 mg 01/25/25 15:19 01/26/25 10:58
Diphenhydramine 50 Mg/Ml 1 Ml Vial IV 02/22/25 15:18 12.5 mg
Q4HPRN PRN Administration
itchiness
Enoxaparin Sodium 40 mg 01/24/25 18:25 01/26/25 17:36
Enoxaparin Sodium 40 Mg/0.4 Ml Syringe SC 02/21/25 18:24 40 mg
QPM KALINA Administration
Glucagon 1 mg 01/27/25 11:00
Glucagon 1 Mg Vial IM 02/24/25 10:59
PRN PRN
hypoglycemia - no IV access
Protocol
Insulin Aspart 0 units 01/27/25 11:30 01/27/25 13:13
Insulin Aspart Low Resistance 300 Units/3 Ml Pen.Injctr SC 02/24/25 11:29 3 units
AC KALINA Administration
Protocol
Levothyroxine Sodium 25 mcg 01/25/25 10:00 01/27/25 06:26
Levothyroxine 25 Mcg Tablet PO 02/22/25 09:59 25 mcg
DAILY@0600 KALINA Administration
Lorazepam 1 mg 01/26/25 13:58 01/27/25 02:06
Lorazepam 1 Mg Tablet PO 02/23/25 13:59 1 mg
Q6H PRN Administration
agitation
Methylprednisolone Sodium Succinate 250 mg 01/26/25 20:00 01/27/25 08:59
Methylprednisolone Pf 125 Mg/2 Ml Vial IV 01/31/25 14:01 250 mg
Q6H KALINA Administration
Polyethylene Glycol 17 grams 01/24/25 18:25
Polyethylene Glycol Powder 17 Grams Packet PO 02/21/25 18:24
DAILYPRN PRN
constipation
Rosuvastatin Calcium 5 mg 01/25/25 10:00 01/27/25 08:59
Rosuvastatin (Crestor) 5 Mg Tablet PO 02/22/25 09:59 5 mg
DAILY KALINA Administration
Senna/Docusate Sodium 1 tablet 01/24/25 18:25
Docusate W/Senna (Ophelia-Colace) Tablet PO 02/21/25 18:24
BIDPRN PRN
constipation
Sodium Chloride 0 flush 01/24/25 18:00
Sodium Chloride 0.9% (Flush) Syringe IV 02/21/25 17:59
PER PROTOCOL KALINA
Sterile Water 10 ml 01/25/25 10:00 01/27/25 10:07
Sterile Water For Injection 10 Ml Vial IV 02/22/25 09:59 10 ml
DAILY@1000 KALINA Administration
Tobramycin Sulfate 0 drop 01/25/25 12:00 01/27/25 12:26
Tobramycin 0.3% (Ophthalmic Solution) 5 Ml Bottle OPHTH 02/04/25 11:59 1 drop
Q4HWA KALINA Administration
Home Medications
�Medication �Instructions �Recorded
levothyroxine 25 mcg tablet 25 mcg PO DAILY 12/21/18
multivitamin with folic acid 400 1 tab PO DAILY 12/21/18
mcg tablet (Tab-A-Mata)
amlodipine 5 mg tablet 5 mg PO DAILY 01/24/25
calcium carbonate 400 mg PO DAILY 01/24/25
cetirizine 10 mg tablet 10 mg PO DAILY 01/24/25
cholecalciferol (vitamin D3) 50 50 mcg PO DAILY 01/24/25
mcg (2,000 unit) tablet
coenzyme Q10 100 mg capsule (Co 100 mg PO DAILY 01/24/25
Q-10)
dupilumab 300 mg/2 mL subcutaneous 300 mg SC Q2W 01/24/25
syringe (Dupixent)
fexofenadine 180 mg tablet 180 mg PO DAILYPRN PRN 01/24/25
itching/allergies
hydrochlorothiazide 12.5 mg capsule 12.5 mg PO DAILY 01/24/25
omega 5-cnb-bap-fish oil 1,000 mg 1 cap PO DAILY 01/24/25
(120 mg-180 mg) capsule (Fish Oil)
rosuvastatin 5 mg tablet 5 mg PO DAILY 01/24/25
Vital Signs and Labs
-
Vital Signs and Labs:
Vital Signs
Temp Pulse Resp BP Pulse Ox
36.4 C 90 16 132/88 96
01/27/25 15:30 01/27/25 15:30 01/27/25 15:30 01/27/25 15:30 01/27/25 15:30
Lab Results
01/27/25 05:28
01/27/25 05:28
PT 13.3 Sec (11.4-14.6) 01/27/25 07:16
INR 0.98 01/27/25 07:16
Sodium 141 mmol/L (135-145) 01/27/25 05:28
Potassium 4.2 mmol/L (3.5-5.1) 01/27/25 05:28
BUN 13 mg/dl (7-17) 01/27/25 05:28
Glucose 229 mg/dl (70-99) H 01/27/25 05:28
Calcium 9.5 mg/dl (8.4-10.2) 01/27/25 05:28
LDL Cholesterol, Calc 52 mg/dl 01/25/25 06:32
Vitamin B12 Cancelled 01/24/25 17:15
Medications
-
Medications:
Generic Name Dose Route Start Last Admin
Trade Name Freq PRN Reason Stop Dose Admin
Amlodipine Besylate 5 mg 01/26/25 08:00 01/27/25 08:59
Amlodipine 5 Mg Tablet PO 02/23/25 07:59 5 mg
DAILY KALINA Administration
Artificial Tears 1 drops 01/25/25 00:27 01/25/25 00:49
Artificial Tears Pf (Refresh) 10 Drop Droperette OPHTH 02/22/25 00:26 1 drops
QIDPRN PRN Administration
dryness
Aspirin 81 mg 01/25/25 08:00 01/27/25 08:59
Aspirin 81 Mg (Enteric Coated) Tablet PO 02/22/25 07:59 81 mg
DAILY KALINA Administration
Bisacodyl 10 mg 01/24/25 18:25
Bisacodyl 10 Mg Rectal Suppository RECTAL 02/21/25 18:24
[id number] PRN
constipation
Calcium Carbonate 500 mg 01/26/25 08:00 01/27/25 09:00
Calcium Carbonate 500 Mg Tablet PO 02/23/25 07:59 500 mg
DAILY KALINA Administration
Ceftriaxone Sodium 1,000 mg 01/25/25 10:00 01/27/25 10:06
Ceftriaxone 1000 Mg / 10 Ml Vial IV 1,000 mg
Q24H KALINA Administration
Cetirizine HCl 10 mg 01/25/25 10:00 01/25/25 11:08
Cetirizine Hcl 10 Mg Tablet PO 02/22/25 09:59 10 mg
DAILY KALINA Administration
Cholecalciferol 50 mcg 01/25/25 10:00 01/27/25 08:59
Cholecalciferol (Vitamin D3) 50 Mcg Tablet (2,000 Units) PO 02/22/25 09:59 50 mcg
DAILY KALINA Administration
Cyanocobalamin 1,000 mcg 01/25/25 10:00 01/27/25 08:59
Cyanocobalamin 1,000 Mcg Tablet PO 02/22/25 09:59 1,000 mcg
DAILY KALINA Administration
Dextrose 12.5 grams 01/27/25 11:00
Dextrose 50% (0.5 Grams/Ml) 50 Ml Syringe IV 02/24/25 10:59
[id number] PRN
hypoglycemia
Protocol
Diphenhydramine HCl 12.5 mg 01/25/25 15:19 01/26/25 10:58
Diphenhydramine 50 Mg/Ml 1 Ml Vial IV 02/22/25 15:18 12.5 mg
Q4HPRN PRN Administration
itchiness
Enoxaparin Sodium 40 mg 01/24/25 18:25 01/27/25 17:35
Enoxaparin Sodium 40 Mg/0.4 Ml Syringe SC 02/21/25 18:24 40 mg
QPM KALINA Administration
Glucagon 1 mg 01/27/25 11:00
Glucagon 1 Mg Vial IM 02/24/25 10:59
PRN PRN
hypoglycemia - no IV access
Protocol
Insulin Aspart 0 units 01/27/25 11:30 01/27/25 17:42
Insulin Aspart Low Resistance 300 Units/3 Ml Pen.Injctr SC 02/24/25 11:29 3 units
AC KALINA Administration
Protocol
Levothyroxine Sodium 25 mcg 01/25/25 10:00 01/27/25 06:26
Levothyroxine 25 Mcg Tablet PO 02/22/25 09:59 25 mcg
DAILY@0600 KALINA Administration
Lorazepam 1 mg 01/26/25 13:58 01/27/25 02:06
Lorazepam 1 Mg Tablet PO 02/23/25 13:59 1 mg
Q6H PRN Administration
agitation
Methylprednisolone Sodium Succinate 250 mg 01/26/25 20:00 01/27/25 14:55
Methylprednisolone Pf 125 Mg/2 Ml Vial IV 01/31/25 14:01 250 mg
Q6H KALINA Administration
Polyethylene Glycol 17 grams 01/24/25 18:25
Polyethylene Glycol Powder 17 Grams Packet PO 02/21/25 18:24
DAILYPRN PRN
constipation
Rosuvastatin Calcium 5 mg 01/25/25 10:00 01/27/25 08:59
Rosuvastatin (Crestor) 5 Mg Tablet PO 02/22/25 09:59 5 mg
DAILY KALINA Administration
Senna/Docusate Sodium 1 tablet 01/24/25 18:25
Docusate W/Senna (Ophelia-Colace) Tablet PO 02/21/25 18:24
BIDPRN PRN
constipation
Sodium Chloride 0 flush 01/24/25 18:00
Sodium Chloride 0.9% (Flush) Syringe IV 02/21/25 17:59
PER PROTOCOL KALINA
Sterile Water 10 ml 01/25/25 10:00 01/27/25 10:07
Sterile Water For Injection 10 Ml Vial IV 02/22/25 09:59 10 ml
DAILY@1000 KALINA Administration
Tobramycin Sulfate 0 drop 01/25/25 12:00 01/27/25 15:34
Tobramycin 0.3% (Ophthalmic Solution) 5 Ml Bottle OPH 02/04/25 11:59 1 drop
Q4HWA KALINA Administration
Home Medications
-
Home Medications
levothyroxine 25 mcg tablet 25 mcg PO DAILY 12/21/18
multivitamin with folic acid 400 mcg tablet (Tab-A-Mata) 1 tab PO DAILY 12/21/18
amlodipine 5 mg tablet 5 mg PO DAILY 01/24/25
calcium carbonate 400 mg PO DAILY 01/24/25
cetirizine 10 mg tablet 10 mg PO DAILY 01/24/25
cholecalciferol (vitamin D3) 50 mcg (2,000 unit) tablet 50 mcg PO DAILY 01/24/25
coenzyme Q10 100 mg capsule (Co Q-10) 100 mg PO DAILY 01/24/25
dupilumab 300 mg/2 mL subcutaneous syringe (Dupixent) 300 mg SC Q2W 01/24/25
fexofenadine 180 mg tablet 180 mg PO DAILYPRN PRN itching/allergies 01/24/25
hydrochlorothiazide 12.5 mg capsule 12.5 mg PO DAILY 01/24/25
omega 3-xbc-hoj-fish oil 1,000 mg (120 mg-180 mg) capsule (Fish Oil) 1 cap PO DAILY 01/24/25
rosuvastatin 5 mg tablet 5 mg PO DAILY 01/24/25
[2025-01-27 15:30] VITALS: BP 132/88
[2025-01-27 15:51] LABS: Spinal Fluid Glucose 118 mg/dl (40-70); Spinal Fluid Protein 160 mg/dl (12-60)
[2025-01-27 16:31] LABS: CSF Clarity Clear; CSF Color Colorless; CSF Tube # 4; Red Cell Count/CSF 1 mm^3; White Cell Count/CSF 3 mm^3 (0-5)
[2025-01-27] MEDS: LOVENOX 40 MG SC (17:35)
[2025-01-27 17:40] LABS: Glucose - Point of Care 291 mg/dl (70-99)
[2025-01-27] MEDS: TOBREX 0.3% EYE DROPS 2 DROP OPHTH (20:56)
[2025-01-27] MEDS: FLUSH (NSS) 2 FLUSH IV (20:57)
[2025-01-27 21:44] LABS: Glucose - Point of Care 274 mg/dl (70-99)
[2025-01-27 22:56] VITALS: BP 121/63
[2025-01-28] MEDS: TOBREX 0.3% EYE DROPS 2 DROP OPHTH ×3 (00:06→20:55)
[2025-01-28] MEDS: SOLU-MEDROL PF 250 MG IV ×3 (02:15→20:54)
[2025-01-28] MEDS: BENADRYL 12.5 MG IV (02:17)
[2025-01-28] MEDS: FLUSH (NSS) 3 FLUSH IV (02:17)
[2025-01-28] MEDS: SYNTHROID 25 MCG PO (05:29)
[2025-01-28 05:53] LABS: Hematocrit 41.4 % (37.0-47.0); Hemoglobin 14.3 g/dL (12.0-16.0); Mean Corp Hgb Conc. 34.5 g/dL (33.0-37.0); Mean Corpuscular Hgb 28.4 pg (27.0-31.0); Mean Corpuscular Volume 82.1 fL (81.0-99.0); Mean Platelet Volume 10.1 fL (7.4-10.4); Platelet Count 231 10^3/uL (130-400); Red Blood Cell Count 5.04 10^6/uL (4.20-5.40); Red Cell Dist. Width 13.7 % (11.5-14.5); White Blood Cell Count 12.9 10^3/uL (4.8-10.8)
[2025-01-28 05:56] LABS: Ammonia < 9 umol/L (9-30)
[2025-01-28 06:16] LABS: Blood Urea Nitrogen 17 mg/dl (7-17); Calcium 9.6 mg/dl (8.4-10.2); Carbon Dioxide 23 mmol/L (22-30); Chloride 105 mmol/L (98-107); Estimated Creatinine Clearance 86 ml/min; Glucose 229 mg/dl (70-99); Sodium 140 mmol/L (135-145); eGFR > 60.00
[2025-01-28 07:42] VITALS: BP 131/73
[2025-01-28 07:51] LABS: Glucose - Point of Care 240 mg/dl (70-99)
[2025-01-28] MEDS: CRESTOR 5 MG PO (10:12)
[2025-01-28] MEDS: VITAMIN D3 (cholecalciferol) 50 MCG PO (10:13)
[2025-01-28] MEDS: ASPIR LOW (ENTERIC COATED) 81 MG PO (10:13)
[2025-01-28] MEDS: NORVASC 5 MG PO (10:13)
[2025-01-28] MEDS: TOBREX 0.3% EYE DROPS 1 DROP OPHTH ×3 (10:14→17:43)
[2025-01-28] MEDS: ROCEPHIN 1000 MG IV (10:14)
[2025-01-28] MEDS: OSCAL CAL 500 500 MG PO (10:14)
[2025-01-28] MEDS: VITAMIN B-12 1000 MCG PO (10:14)
[2025-01-28] MEDS: STERILE WATER FOR INJECTION 10 ML IV (10:15)
--- NOTE | 2025-01-28 10:15 | VATNOTE ---
Spoke with Dr. Alonso regarding patient having removed multiple IVs over the past few days. MD insists patient needs IV access for IV medications. Spoke with PCN and requested 1:1 observation or other deterrent to keep IV access in place.
--- NOTE | 2025-01-28 10:26 | W.PN.UPDATE ---
Update Note
Progress Note Update
Patient seen, chart reviewed, discussed with nursing. Patient has ripped out multiple IVs but otherwise has been reportedly calm. She does remain confused, tries to get out of bed. She had an LP performed yesterday and IV steroids have been
initiated (see Neuro consult). Thus far, patient only complains of being hungry. Mood is anhedonic, affect flat. She is cooperative but minimally responds to conversation.
Impression/Recommendation: Dementia with episodes of delirium - continue Ativan 1 mg q.6 hours p.r.n. for agitation.
[2025-01-28] MEDS: NOVOLOG FLEXPEN-LOW RESISTANCE 2 UNITS SC (10:28)
[2025-01-28 12:19] LABS: Glucose - Point of Care 324 mg/dl (70-99)
[2025-01-28 12:35] VITALS: BP 147/78; PULSE 95
[2025-01-28] MEDS: NOVOLOG FLEXPEN-LOW RESISTANCE 4 UNITS SC (12:37)
[2025-01-28 13:10] VITALS: BP 147/78
--- NOTE | 2025-01-28 13:11 | W.PN.HOSP.TC ---
Today's Communication/Plan
-
monitor mental status
Assessment / Plan
Assessment / Plan
Impression:
70 years old female with hypertension hyperlipidemia presented with altered mental status of unclear etiology.� She has chronic decline for months but acutely decompensated recently.� Neurology on board.� MRI of the brain with tumefactive
demyelination.� Possible UTI on IV Rocephin awaiting for cultures.� Mental status improved, started on empiric dexamethasone.
Status post lumbar puncture
Assessment/plan:
Acute mental status changes/acute metabolic encephalopathy
Unclear etiology but rule out stroke versus cognitive deficits related vs toxic metabolic encephalopathy versus ADEM vs MS vs other
MRI of the brain repeated with gadolinium and it shows possible tumefactive demyelination--> awaiting for neurology input.
Discussed with neurology if she needs LP but he said to hold on and will give further recommendations.
Will get psychiatry consult today since she is also requiring restraints-discussed with psychiatry via [facility] text today.
Continue monitor neurological status
Continue ASA for stroke prevention
Checking fasting lipids
PT OT SP eval
Discussed with family at bedside today as well as RN and disease case manager at bedside.
Status post lumbar puncture
normal ammonia
continue Dexa
Abnormal UA, probable UTI:
Continue IV ceftriaxone
WBC 11.7--> 7.4
Urine culture shows possible contaminant
Vitamin B12 deficiency:
Continue B12 supplementation
Conjunctivitis:
Tobramycin eye drop
Erythrocytosis:
Hemoconcentration versus ?polycythemia
Received IV fluid and Hb went down slightly
Monitor hemoglobin
Hypertension:
Resumed antihypertensives but hold hctz due to hypokalemia
Hypokalemia:
Replete and trend
Hypothyroidism:
Resume thyroid replacement
tsh within normal
History of hyperlipidemia
Continue statin
Rash:
Appears to be chronic in nature
Resume zyrtec
She is on Dupixent as outpatient-hold for now until known infection status.
Per family she had skin biopsies in the past with no clear diagnosis.
CODE STATUS: Full code
DVT prophylaxis: Lovenox
Diet: Cardiac diet
Family communication: Discussed with Ex- at bedside
Total time spent on today's encounter was 65 minutes which included time spent in counseling the patient/family regarding diagnosis and treatment plan as listed above, goals of care, and symptom management. Case was discussed with nursing staff,
specialists, and care coordinators/case management. All labs and imaging personally reviewed by me. Remainder the time spent in detailed review of previous records, lab data, imaging, and other medical provider documentation.
Anticipated Discharge: > 48 hours
Subjective/Interval History
-
Date of Service: January 28, 2025
Patient is more awake and oriented compared to yesterday but still with episodes of confusion and pulling her IV.
Patient easily redirected.
Denies chest pain or shortness of breath.
Status post LP yesterday, started on dexamethasone.
Objective Data
-
Labs:
Laboratory Results
01/28/25
05:29
WBC 12.9 H
Hgb 14.3
Hct 41.4
Plt Count 231
Sodium 140
Potassium 4.0
Chloride 105
Carbon Dioxide 23
BUN 17
Creatinine 0.6
Glucose 229 H
Calcium 9.6
Vital Signs:
Vital Signs
Temp Pulse Resp BP Pulse Ox
97.9 F 86 14 131/73 96
01/28/25 07:42 01/28/25 10:13 01/28/25 07:42 01/28/25 10:13 01/28/25 07:42
I&O
01/27/25 01/28/25 01/29/25
06:59 06:59 06:59
Intake Total 840 / 840 1280 / 1280
Balance 840 / 840 1280 / 1280
Physical Exam
-
General: Comfortable
HEENT: Normocephalic, Atraumatic, Moist Mucous Membranes, No Ptosis, PERRLA and Nose Appears Normal
Respiratory: Rales and Non Labored Respirations
Cardiac: Regular Rhythm and S1/S2
Breast: Deferred by me
GI: Soft, Nontender, Nondistended and Normal Bowel Sounds
Genito-urinary: No Costovertebral Tender
Musculoskeletal: No Clubbing, No Cyanosis and No Edema
Skin: Rash (Diffuse maculopapular rash)
Neuro: Awake, AO x 3, No Motor Deficits and Other (Not fully oriented)
Psych: Calm and Confused
Data Reviewed
-
Diagnostic Radiology: Image personally visualized and interpreted and Report Reviewed by me
CT Scan: Image personally visualized and interpreted and Report Reviewed by me
Ultrasound: Image personally visualized and interpreted and Report Reviewed by me
MRI: Image personally visualized and interpreted and Report Reviewed by me
Medical Tests (Nuc Med, Echo etc): Image personally visualized and interpreted and Report Reviewed by me
Labs: Labs Reviewed by me
Old Records: Reviewed
[2025-01-28 13:53] LABS: HIV Combo Negative (Negative)
[2025-01-28 15:19] VITALS: BP 139/70
[2025-01-28 17:37] LABS: Glucose - Point of Care 257 mg/dl (70-99)
[2025-01-28] MEDS: LOVENOX 40 MG SC (17:44)
[2025-01-28] MEDS: NOVOLOG FLEXPEN-LOW RESISTANCE 3 UNITS SC (17:44)
[2025-01-28] MEDS: SOLU-MEDROL PF IV (17:52)
--- NOTE | 2025-01-28 19:12 | W.PN.NEURO.1 ---
Today's Communication / Plan
-
.
Subjective/Objective
Subjective Data
Date of Service: January 28, 2025
Neurology follow-up note
Ms. Angel reports no complaints.
She has been mostly normotensive, afebrile and intermittently agitated. No reports of headache or back pain.
Status post 2 days of IV methylprednisolone. Continues to be on ceftriaxone for possible UTI
Thoracic spine MRI report is pending.
Labs: Glucose�324, 527, HIV�negative,
Brain MRI w/wo bertram(01/25/2025)�extensive T2/FLAIR hyperintense signal within the bilateral periventricular white matter at the level of the atrium of the lateral ventricle involving the occipital, parietal and posterior right frontal lobes as well
as extending along the splenium of the corpus callosum with peripheral enhancement and restriction DWI sequence.
Labs: Vitamin B12�159, Hemoglobin A1c�6.7, normal sodium, creatinine,
CSF�protein�160, glucose�118, normal cell count.
PMH:prurigo nodularis? 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
PSH: LASIK surgery, tonsillectomy, L mastectomy, sinus surgery,
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
FH: mother, MGM-schizophrenia,
All: Cortisone, sulfas,
ROS: Constitutional: Negative. Negative for chills, fever and unexpected weight change.
Skin: Positive for rash
Neurological: Positive for encephalopathy, imbalance, negative for headache
General: Well developed. In no acute distress. Unkept
Cardio: Regular rate and rhythm without murmur. Extremities are without cyanosis or edema.
Neuro:
Mental Status: Alert, oriented to name, not to the age, date of , year, months. Knew the current president's name. Follows simple requests. Increased processing time. Poor attention and comprehension.
Cranial Nerves: Pupils are equally round and reactive to light. Horizontal EOMs full. Blink to threat bilaterally. No ptosis. No nystagmus. Face symmetric. Normal hearing AU. The palate elevated well. SCMs and traps 5/5. Tongue midline.
No dysarthria.
Motor: Moves all limbs antigravity purposefully
Reflexes: Negative grasp bilaterally
Sensory: Limited exam due to breath
Coordination: No tremors myoclonic movements
Gait: deferred
Assessment and Plan:
I. Chronic progressive encephalopathy (metabolic, toxic,?demyelinating)
II. Subcortical bilateral occipital, parietal frontal as well as corpus callosum enhancing signal abnormality. Differential diagnosis includes demyelinating versus neoplastic versus infectious. Dupilumab has been published to be associated with
BOARD WINDER demyelination. https://pmc.ncbi.nlm.nih.gov/articles/IPH8197034/
III. B12 deficiency
IV. MDD, PTSD, history of EtOH use disorder
- Delirium precautions
- Follow-up C/T spine MRI report
- Please obtain CA�T spine MRI with and without bertram
- Follow-up requested serologies and CSF studies
- Hold methylprednisone
- hold Dupilumab therapy for now
- Thiamine IV
- Continue parenteral vitamin B12
- May consider brain SPECT based on clinical course and CSF result pending CSF results
- Will follow
I personally reviewed all radiology and labs along with past medical records pertinent to current medical problems. Total time spent in patient care is 35 minutes.
Thank you for allowing us to participate in the care of this patient. We will continue to follow. Please do not hesitate to contact us with any questions or concerns.
Objective Data
Vital Signs
Temp Pulse Resp BP Pulse Ox
36.6 C 81 16 139/70 96
01/28/25 15:19 01/28/25 15:19 01/28/25 15:19 01/28/25 15:19 01/28/25 15:19
Lab Results
01/28/25 05:29
01/28/25 05:29
PT 13.3 Sec (11.4-14.6) 01/27/25 07:16
INR 0.98 01/27/25 07:16
Sodium 140 mmol/L (135-145) 01/28/25 05:29
Potassium 4.0 mmol/L (3.5-5.1) 01/28/25 05:29
BUN 17 mg/dl (7-17) 01/28/25 05:29
Glucose 229 mg/dl (70-99) H 01/28/25 05:29
Calcium 9.6 mg/dl (8.4-10.2) 01/28/25 05:29
LDL Cholesterol, Calc 52 mg/dl 01/25/25 06:32
Vitamin B12 Cancelled 01/24/25 17:15
Patient Allergies
cortisone Allergy (Verified 01/24/25 11:31)
hyperactivity
Sulfa (Sulfonamide Antibiotics) Allergy (Verified 01/24/25 11:31)
Rash
tobacco Allergy (Uncoded 01/24/25 11:31)
Anaphylaxis
[2025-01-28 21:12] LABS: Glucose - Point of Care 291 mg/dl (70-99)
--- NOTE | 2025-01-28 21:52 | VATNOTE ---
restarted IV per nursing request. Rgith arm IV site secured with Kerlix, Brad bandage and medium no-no.
[2025-01-28 23:00] VITALS: BP 123/67
[2025-01-29] MEDS: ATIVAN 1 MG PO ×2 (00:39→12:12)
[2025-01-29] MEDS: TOBREX 0.3% EYE DROPS 2 DROP OPHTH ×3 (00:39→19:55)
[2025-01-29] MEDS: SOLU-MEDROL PF 250 MG IV (01:05)
[2025-01-29] MEDS: BENADRYL 12.5 MG IV (01:07)
[2025-01-29 06:00] VITALS: BMI 29.0
[2025-01-29] MEDS: SYNTHROID 25 MCG PO (06:07)
[2025-01-29 06:18] LABS: Hematocrit 41.3 % (37.0-47.0); Hemoglobin 14.1 g/dL (12.0-16.0); Mean Corp Hgb Conc. 34.1 g/dL (33.0-37.0); Mean Corpuscular Hgb 28.5 pg (27.0-31.0); Mean Corpuscular Volume 83.4 fL (81.0-99.0); Mean Platelet Volume 10.4 fL (7.4-10.4); Platelet Count 219 10^3/uL (130-400); Red Blood Cell Count 4.95 10^6/uL (4.20-5.40); Red Cell Dist. Width 13.9 % (11.5-14.5); White Blood Cell Count 11.1 10^3/uL (4.8-10.8)
[2025-01-29 06:41] LABS: Blood Urea Nitrogen 19 mg/dl (7-17); Calcium 9.4 mg/dl (8.4-10.2); Carbon Dioxide 28 mmol/L (22-30); Chloride 104 mmol/L (98-107); Estimated Creatinine Clearance 86 ml/min; Glucose 204 mg/dl (70-99); Potassium 4.2 mmol/L (3.5-5.1); Sodium 142 mmol/L (135-145); eGFR > 60.00
[2025-01-29 07:05] VITALS: BP 120/88
[2025-01-29 07:51] LABS: Glucose - Point of Care 225 mg/dl (70-99)
[2025-01-29] MEDS: VITAMIN D3 (cholecalciferol) 50 MCG PO (09:37)
[2025-01-29] MEDS: CRESTOR 5 MG PO (09:37)
[2025-01-29] MEDS: OSCAL CAL 500 500 MG PO (09:37)
[2025-01-29] MEDS: VITAMIN B-12 1000 MCG PO (09:37)
[2025-01-29] MEDS: ASPIR LOW (ENTERIC COATED) 81 MG PO (09:37)
[2025-01-29] MEDS: TOBREX 0.3% EYE DROPS 1 DROP OPHTH ×3 (09:37→17:40)
[2025-01-29] MEDS: NORVASC 5 MG PO (09:37)
[2025-01-29] MEDS: NOVOLOG FLEXPEN-LOW RESISTANCE 2 UNITS SC ×2 (09:38→17:40)
[2025-01-29] MEDS: SOLU-MEDROL PF IV (10:10)
--- NOTE | 2025-01-29 10:26 | W.PN.HOSP.TC ---
Today's Communication/Plan
-
Discharge if MRI cervical spine normal
Assessment / Plan
Assessment / Plan
Impression:
70 years old female with hypertension hyperlipidemia presented with altered mental status of unclear etiology.� She has chronic decline for months but acutely decompensated recently.� Neurology on board.� MRI of the brain with tumefactive
demyelination.� Possible UTI on IV Rocephin awaiting for cultures.� Mental status improved, started on empiric dexamethasone.
Status post lumbar puncture.
No apparent etiology, steroid discontinued.
MRI thoracic done showed There is mild loss of height of the T8 vertebral body with mild STIR signal and enhancement consistent with acute/subacute compression fracture.
There are apparent short segment foci of T2 hyperintense, nonenhancing signal within the lateral aspect of the cord at the T10-T11 and T11-T12 levels, possibly related to demyelinating disease or myelitis. There is no associated enhancement
Otherwise medically cleared for discharge
Assessment/plan:
Acute mental status changes/acute metabolic encephalopathy
Unclear etiology but rule out stroke versus cognitive deficits related vs toxic metabolic encephalopathy versus ADEM vs MS vs other
MRI of the brain repeated with gadolinium and it shows possible tumefactive demyelination--> awaiting for neurology input.
Discussed with neurology if she needs LP but he said to hold on and will give further recommendations.
Will get psychiatry consult today since she is also requiring restraints-discussed with psychiatry via [place] text today.
Continue monitor neurological status
Continue ASA for stroke prevention
Checking fasting lipids
PT OT SP eval
Discussed with family at bedside today as well as RN and ed case manager at bedside.
Status post lumbar puncture
normal ammonia
continue Dexa
01/29
Discontinue dexamethasone.
Pending MRI cervical spine
Abnormal UA, probable UTI:
Continue IV ceftriaxone
WBC 11.7--> 7.4
Urine culture shows possible contaminant
01/29
Discontinue further antibiotics
New onset type 2 diabetes mellitus.
Patient with steroid-induced hyperglycemia but hemoglobin A1c came back 6.7.
Will start low-dose metformin, continue insulin sliding scale.
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
Vitamin B12 deficiency:
Continue B12 supplementation
Conjunctivitis:
Tobramycin eye drop
Erythrocytosis:
Hemoconcentration versus ?polycythemia
Received IV fluid and Hb went down slightly
Monitor hemoglobin
Hypertension:
Resumed antihypertensives but hold hctz due to hypokalemia
Hypokalemia:
Replete and trend
Hypothyroidism:
Resume thyroid replacement
tsh within normal
History of hyperlipidemia
Continue statin
Rash:
Appears to be chronic in nature
Resume zyrtec
She is on Dupixent as outpatient-hold for now until known infection status.
Resume upon discharge
Per family she had skin biopsies in the past with no clear diagnosis.
CODE STATUS: Full code
DVT prophylaxis: Lovenox
Diet: Cardiac diet
Family communication: Discussed with Ex- at bedside
Total time spent on today's encounter was 65 minutes which included time spent in counseling the patient/family regarding diagnosis and treatment plan as listed above, goals of care, and symptom management. Case was discussed with nursing staff,
specialists, and care coordinators/case management. All labs and imaging personally reviewed by me. Remainder the time spent in detailed review of previous records, lab data, imaging, and other medical provider documentation.
Anticipated Discharge: Within 24 hours
Subjective/Interval History
-
Date of Service: January 29, 2025
Patient feeling better and more awake.
Discussed with neurology, will discontinue steroid.
Discontinue Rocephin.
Pending MRI cervical spine, otherwise patient cleared for discharge.
Objective Data
-
Labs:
Laboratory Results
01/29/25
05:16
WBC 11.1 H
Hgb 14.1
Hct 41.3
Plt Count 219
Sodium 142
Potassium 4.2
Chloride 104
Carbon Dioxide 28
BUN 19 H
Creatinine 0.6
Glucose 204 H
Calcium 9.4
Vital Signs:
Vital Signs
Temp Pulse Resp BP Pulse Ox
97.6 F 83 18 120/88 98
01/29/25 07:05 01/29/25 09:37 01/29/25 07:05 01/29/25 09:37 01/29/25 07:05
I&O
01/28/25 01/29/25 01/30/25
06:59 06:59 06:59
Intake Total 1280 / 1280 960 / 960 240 / 240
Balance 1280 / 1280 960 / 960 240 / 240
Physical Exam
-
General: Comfortable
HEENT: Normocephalic, Atraumatic, Moist Mucous Membranes, No Ptosis, PERRLA and Nose Appears Normal
Respiratory: Rales and Non Labored Respirations
Cardiac: Regular Rhythm and S1/S2
Breast: Deferred by me
GI: Soft, Nontender, Nondistended and Normal Bowel Sounds
Genito-urinary: No Costovertebral Tender
Musculoskeletal: No Clubbing, No Cyanosis and No Edema
Skin: Rash (Diffuse maculopapular rash)
Neuro: Awake, AO x 3, No Motor Deficits and Other (Not fully oriented)
Psych: Calm and Confused
Data Reviewed
-
Diagnostic Radiology: Image personally visualized and interpreted and Report Reviewed by me
CT Scan: Image personally visualized and interpreted and Report Reviewed by me
Ultrasound: Image personally visualized and interpreted and Report Reviewed by me
MRI: Image personally visualized and interpreted and Report Reviewed by me
Medical Tests (Nuc Med, Echo etc): Image personally visualized and interpreted and Report Reviewed by me
Labs: Labs Reviewed by me
Old Records: Reviewed
--- NOTE | 2025-01-29 10:29 | W.PN.NEURO.1 ---
Today's Communication / Plan
-
.
Neuro Assessment/Plan
Assessment
patient with several months of cognitive impairment, 5 days ago sudden worsening, with falls
exam consistent with Alz at least moderate severity, Parkinsonism though these cannot be diagnosed in the accute setting;
left facial droop/hemiparesis/foot drop which does not match the left anterior internal capsule stroke
MRI brain imgs and report reviewed 'There is extensive T2/FLAIR hyperintense signal within the bilateral periventricular white matter at the level of the atrium of the lateral ventricle involving the occipital, parietal and posterior right frontal
lobes as well as extending along the splenium of the corpus callosum. This appears to demonstrate peripherally restricted diffusion. '
MRI post contrast images and report rev'd, showing peripheral enhancement; lack of surrounding edema, favoring tumefactive demyelination over glioma;
Plan
try Solumedrol 250 q5 x20 doses - noted prior hyperactivity, however with severity of illness would still try
LP tomorrow
spoke with ex- Damian primary contact re findings, plan for steroids, LP
patient no POA, not legally , next of kin would be son, Chito
Subjective/Objective
Subjective Data
Date of Service: January 29, 2025
Neurology follow-up note
Ms. Angel reports no complaints.
She had an uneventful night and continues to be normotensive and afebrile.
T spine MRI w/wo jayro(01/28/2025) short segment foci of T2 hyperintense, nonenhancing signal within the lateral aspect of the cord at the T10-T11 and T11-T12 levels with no associated enhancement.
Brain MRI w/wo jayro(01/25/2025)�extensive T2/FLAIR hyperintense signal within the bilateral periventricular white matter at the level of the atrium of the lateral ventricle involving the occipital, parietal and posterior right frontal lobes as well
as extending along the splenium of the corpus callosum with peripheral enhancement and restriction DWI sequence.
Labs: Vitamin B12�159, Hemoglobin A1c�6.7, normal sodium, creatinine,
CSF�protein�160, glucose�118, normal cell count.
PMH:prurigo nodularis? 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
PSH: LASIK surgery, tonsillectomy, L mastectomy, sinus surgery,
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
FH: mother, MGM-schizophrenia,
All: Cortisone, sulfas,
ROS: Constitutional: Negative. Negative for chills, fever and unexpected weight change.
Skin: Positive for rash
Neurological: Positive for encephalopathy, imbalance, negative for headache
General: Well developed. In no acute distress. Unkept
Cardio: Regular rate and rhythm without murmur. Extremities are without cyanosis or edema.
Neuro:
Mental Status: Alert, oriented to name, not to the age, date of , year, months. Knew the current president's name. Follows simple requests. Increased processing time. Poor attention and comprehension.
Cranial Nerves: Pupils are equally round and reactive to light. Horizontal EOMs full. Blink to threat bilaterally. No ptosis. No nystagmus. Face symmetric. Normal hearing AU. The palate elevated well. SCMs and traps 5/5. Tongue midline.
No dysarthria.
Motor: Moves all limbs antigravity purposefully
Reflexes: Negative grasp bilaterally
Sensory: Limited exam due to breath
Coordination: No tremors myoclonic movements
Gait: deferred
Assessment and Plan:
I. 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 ? Medication induced
II. Chronic progressive encephalopathy (metabolic, toxic, ?demyelinating)
III. B12 deficiency
IV. MDD, PTSD, history of EtOH use disorder
- Delirium precautions
- Follow-up C-spine MRI with gadolinium
- Follow-up requested serologies and CSF studies
- hold Dupilumab
- Continue p.o. thiamine, and parenteral vitamin B12
- May consider brain SPECT based on clinical course and CSF result pending CSF results
- PT, DVT prophylaxis
- Outpatient neurology and dermatology follow-up
- Please recall neurology services any questions or concerns
I personally reviewed all radiology and labs along with past medical records pertinent to current medical problems. Total time spent in patient care is 35 minutes.
Thank you for allowing us to participate in the care of this patient. Please do not hesitate to contact us with any questions or concerns.
Objective Data
Vital Signs
Temp Pulse Resp BP Pulse Ox
36.4 C 83 18 120/88 98
01/29/25 07:05 01/29/25 09:37 01/29/25 07:05 01/29/25 09:37 01/29/25 07:05
Lab Results
01/29/25 05:16
01/29/25 05:16
PT 13.3 Sec (11.4-14.6) 01/27/25 07:16
INR 0.98 01/27/25 07:16
Sodium 142 mmol/L (135-145) 01/29/25 05:16
Potassium 4.2 mmol/L (3.5-5.1) 01/29/25 05:16
BUN 19 mg/dl (7-17) H 01/29/25 05:16
Glucose 204 mg/dl (70-99) H 01/29/25 05:16
Calcium 9.4 mg/dl (8.4-10.2) 01/29/25 05:16
LDL Cholesterol, Calc 52 mg/dl 01/25/25 06:32
Vitamin B12 Cancelled 01/24/25 17:15
Patient Allergies
cortisone Allergy (Verified 01/24/25 11:31)
hyperactivity
Sulfa (Sulfonamide Antibiotics) Allergy (Verified 01/24/25 11:31)
Rash
tobacco Allergy (Uncoded 01/24/25 11:31)
Anaphylaxis
Vital Signs and Labs
-
Vital Signs and Labs:
Vital Signs
Temp Pulse Resp BP Pulse Ox
36.4 C 83 18 120/88 98
01/29/25 07:05 01/29/25 09:37 01/29/25 07:05 01/29/25 09:37 01/29/25 07:05
Lab Results
01/29/25 05:16
01/29/25 05:16
PT 13.3 Sec (11.4-14.6) 01/27/25 07:16
INR 0.98 01/27/25 07:16
Sodium 142 mmol/L (135-145) 01/29/25 05:16
Potassium 4.2 mmol/L (3.5-5.1) 01/29/25 05:16
BUN 19 mg/dl (7-17) H 01/29/25 05:16
Glucose 204 mg/dl (70-99) H 01/29/25 05:16
Calcium 9.4 mg/dl (8.4-10.2) 01/29/25 05:16
LDL Cholesterol, Calc 52 mg/dl 01/25/25 06:32
Vitamin B12 Cancelled 01/24/25 17:15
Medications
-
Medications:
Generic Name Dose Route Start Last Admin
Trade Name Freq PRN Reason Stop Dose Admin
Amlodipine Besylate 5 mg 01/26/25 08:00 01/29/25 09:37
Amlodipine 5 Mg Tablet PO 02/23/25 07:59 5 mg
DAILY KALINA Administration
Artificial Tears 1 drops 01/25/25 00:27 01/25/25 00:49
Artificial Tears Pf (Refresh) 10 Drop Droperette OPHTH 02/22/25 00:26 1 drops
QIDPRN PRN Administration
dryness
Aspirin 81 mg 01/25/25 08:00 01/29/25 09:37
Aspirin 81 Mg (Enteric Coated) Tablet PO 02/22/25 07:59 81 mg
DAILY KALINA Administration
Bisacodyl 10 mg 01/24/25 18:25
Bisacodyl 10 Mg Rectal Suppository RECTAL 02/21/25 18:24
[id number] PRN
constipation
Calcium Carbonate 500 mg 01/26/25 08:00 01/29/25 09:37
Calcium Carbonate 500 Mg Tablet PO 02/23/25 07:59 500 mg
DAILY KALINA Administration
Cetirizine HCl 10 mg 01/25/25 10:00 01/25/25 11:08
Cetirizine Hcl 10 Mg Tablet PO 02/22/25 09:59 10 mg
DAILY KALINA Administration
Cholecalciferol 50 mcg 01/25/25 10:00 01/29/25 09:37
Cholecalciferol (Vitamin D3) 50 Mcg Tablet (2,000 Units) PO 02/22/25 09:59 50 mcg
DAILY KALINA Administration
Cyanocobalamin 1,000 mcg 01/25/25 10:00 01/29/25 09:37
Cyanocobalamin 1,000 Mcg Tablet PO 02/22/25 09:59 1,000 mcg
DAILY KALINA Administration
Dextrose 12.5 grams 01/27/25 11:00
Dextrose 50% (0.5 Grams/Ml) 50 Ml Syringe IV 02/24/25 10:59
[id number] PRN
hypoglycemia
Protocol
Diphenhydramine HCl 12.5 mg 01/25/25 15:19 01/29/25 01:07
Diphenhydramine 50 Mg/Ml 1 Ml Vial IV 02/22/25 15:18 12.5 mg
Q4HPRN PRN Administration
itchiness
Enoxaparin Sodium 40 mg 01/24/25 18:25 01/28/25 17:44
Enoxaparin Sodium 40 Mg/0.4 Ml Syringe SC 02/21/25 18:24 40 mg
QPM KALINA Administration
Glucagon 1 mg 01/27/25 11:00
Glucagon 1 Mg Vial IM 02/24/25 10:59
PRN PRN
hypoglycemia - no IV access
Protocol
Insulin Aspart 0 units 01/27/25 11:30 01/29/25 09:38
Insulin Aspart Low Resistance 300 Units/3 Ml Pen.Injctr SC 02/24/25 11:29 2 units
AC KALINA Administration
Protocol
Levothyroxine Sodium 25 mcg 01/25/25 10:00 01/29/25 06:07
Levothyroxine 25 Mcg Tablet PO 02/22/25 09:59 25 mcg
DAILY@0600 KALINA Administration
Lorazepam 1 mg 01/26/25 13:58 01/29/25 00:39
Lorazepam 1 Mg Tablet PO 02/23/25 13:59 1 mg
Q6H PRN Administration
agitation
Polyethylene Glycol 17 grams 01/24/25 18:25
Polyethylene Glycol Powder 17 Grams Packet PO 02/21/25 18:24
DAILYPRN PRN
constipation
Rosuvastatin Calcium 5 mg 01/25/25 10:00 01/29/25 09:37
Rosuvastatin (Crestor) 5 Mg Tablet PO 02/22/25 09:59 5 mg
DAILY KALINA Administration
Senna/Docusate Sodium 1 tablet 01/24/25 18:25
Docusate W/Senna (Ophelia-Colace) Tablet PO 02/21/25 18:24
BIDPRN PRN
constipation
Sodium Chloride 0 flush 01/24/25 18:00 01/28/25 02:17
Sodium Chloride 0.9% (Flush) Syringe IV 02/21/25 17:59 3 flush
PER PROTOCOL KALINA Administration
Tobramycin Sulfate 0 drop 01/25/25 12:00 01/29/25 09:37
Tobramycin 0.3% (Ophthalmic Solution) 5 Ml Bottle OPHTH 02/04/25 11:59 1 drop
Q4HWA KALINA Administration
Home Medications
-
Home Medications
levothyroxine 25 mcg tablet 25 mcg PO DAILY 12/21/18
multivitamin with folic acid 400 mcg tablet (Tab-A-Mata) 1 tab PO DAILY 12/21/18
amlodipine 5 mg tablet 5 mg PO DAILY 01/24/25
calcium carbonate 400 mg PO DAILY 01/24/25
cetirizine 10 mg tablet 10 mg PO DAILY 01/24/25
cholecalciferol (vitamin D3) 50 mcg (2,000 unit) tablet 50 mcg PO DAILY 01/24/25
coenzyme Q10 100 mg capsule (Co Q-10) 100 mg PO DAILY 01/24/25
dupilumab 300 mg/2 mL subcutaneous syringe (Dupixent) 300 mg SC Q2W 01/24/25
fexofenadine 180 mg tablet 180 mg PO DAILYPRN PRN itching/allergies 01/24/25
hydrochlorothiazide 12.5 mg capsule 12.5 mg PO DAILY 01/24/25
omega 0-jmt-yqm-fish oil 1,000 mg (120 mg-180 mg) capsule (Fish Oil) 1 cap PO DAILY 01/24/25
rosuvastatin 5 mg tablet 5 mg PO DAILY 01/24/25
[2025-01-29 11:54] LABS: Glucose - Point of Care 317 mg/dl (70-99)
--- NOTE | 2025-01-29 12:19 | W.PN.UPDATE ---
Addendum entered and electronically signed by Mayelin Ordoñez MD 01/30/25 15:23:
derm did not feel the rash was psoriatic. she suggested follicular neuro derm or infectious. communicated to dr fonseca
Original Note:
Update Note
Progress Note Update
patient seen chart reviewed. spoke with nursing. patient was calm when i saw her today and pleasant. she has taken one ativan one mg today and one on the . there is question as to the cause of her escalating encephalopathy...eg neoplastic
demyelinating infectious i did note full body rash excluding palms and soles which seems itchy. i asked a local quality assurance supervisor if she would look at px of the lesions (patient gave permission) as it does seem to be rather itchy according to nursing
staff. did not make any changes in her psych prn which she has not needed in a couple of days.
[2025-01-29] MEDS: NOVOLOG FLEXPEN-LOW RESISTANCE 4 UNITS SC (13:56)
[2025-01-29 15:05] VITALS: BP 129/63
[2025-01-29 16:50] LABS: Glucose - Point of Care 244 mg/dl (70-99)
[2025-01-29] MEDS: LOVENOX 40 MG SC (17:42)
[2025-01-29] MEDS: BENADRYL 25 MG PO (17:43)
[2025-01-29 20:13] LABS: Angiotensin-1-converting Enzym 14 U/L (16-85)
[2025-01-29 21:37] LABS: Glucose - Point of Care 271 mg/dl (70-99)
[2025-01-29 23:00] VITALS: BP 137/72
[2025-01-30] MEDS: TOBREX 0.3% EYE DROPS OPHTH ×2 (00:56→04:55)
[2025-01-30 01:36] LABS: ANA, IgG Reflex to HEp-2 Detected (None Detected)
[2025-01-30 01:48] LABS: SSA 52 (Ro)(ENA) Ab, IgG 3 AU/mL (0-40); SSA 60 (Ro)(ENA) Ab, IgG 56 AU/mL (0-40); SSB (La)(ENA) Ab, IgG 3 AU/mL (0-40)
[2025-01-30 06:00] VITALS: BMI 29.8
[2025-01-30] MEDS: SYNTHROID 25 MCG PO (06:18)
[2025-01-30 06:27] LABS: Hematocrit 42.5 % (37.0-47.0); Hemoglobin 14.9 g/dL (12.0-16.0); Mean Corp Hgb Conc. 35.1 g/dL (33.0-37.0); Mean Corpuscular Hgb 28.7 pg (27.0-31.0); Mean Corpuscular Volume 81.7 fL (81.0-99.0); Platelet Count 228 10^3/uL (130-400); Red Cell Dist. Width 13.9 % (11.5-14.5); White Blood Cell Count 9.8 10^3/uL (4.8-10.8)
[2025-01-30 06:49] LABS: Blood Urea Nitrogen 22 mg/dl (7-17); Calcium 9.1 mg/dl (8.4-10.2); Carbon Dioxide 26 mmol/L (22-30); Chloride 105 mmol/L (98-107); Estimated Creatinine Clearance 86 ml/min; Glucose 140 mg/dl (70-99); Sodium 140 mmol/L (135-145); eGFR > 60.00
[2025-01-30 07:05] VITALS: BP 127/65
[2025-01-30 07:48] LABS: Glucose - Point of Care 138 mg/dl (70-99)
[2025-01-30] MEDS: NOVOLOG FLEXPEN-LOW RESISTANCE SC (08:22)
[2025-01-30] MEDS: CRESTOR 5 MG PO (08:29)
[2025-01-30] MEDS: ASPIR LOW (ENTERIC COATED) 81 MG PO (08:30)
[2025-01-30] MEDS: OSCAL CAL 500 500 MG PO (08:31)
[2025-01-30] MEDS: VITAMIN D3 (cholecalciferol) 50 MCG PO (08:31)
[2025-01-30] MEDS: TOBREX 0.3% EYE DROPS 1 DROP OPHTH ×3 (08:32→18:00)
[2025-01-30] MEDS: BENADRYL 25 MG PO (08:32)
[2025-01-30] MEDS: VITAMIN B-12 1000 MCG PO (08:32)
[2025-01-30] MEDS: NORVASC 5 MG PO (08:32)
[2025-01-30 08:53] VITALS: BP 138/90
[2025-01-30 08:55] VITALS: BP 138/90; BP 157/82; PULSE 102; O2SAT 96
[2025-01-30 10:34] LABS: Albumin Index 24.1 ratio (0.0-9.0); Albumin, CSF 90 mg/dL (0-35); Albumin, Serum 3731 mg/dL (3500-5200); CSF IgG Synthesis Rate 19.4 mg/d (<=8.0); CSF IgG/Albumin Ratio 0.15 ratio (0.09-0.25); CSF Oligoclonal Bands Negative (Negative); CSF Oligoclonal Bands Number 1 Bands (0-1); IgG 831 mg/dL (768-1632); IgG, CSF 13.2 mg/dL (0.0-6.0)
--- NOTE | 2025-01-30 11:11 | CM ---
Addendum entered by Mary Thrasher 01/30/25 13:26:
Patient updated that [facility] patient, awaiting further responses.
Addendum entered by Mary Thrasher 01/30/25 11:45:
referrals sent in all scripts await response.
Original Note:
Patient seen at bedside. CM called to patient ex who stated that he appreciated CM reaching out to him and after discussion agreed for CM to send referrals out to local SNF options and he would discuss options once accepted. CM updated
physician. CM will continue to follow for discharge planning needs.
Plan; SNF placement
[2025-01-30 11:37] LABS: Glucose - Point of Care 264 mg/dl (70-99)
--- NOTE | 2025-01-30 11:57 | PTCARENOTE ---
01/30/2025 DIABETES EDUCATION
I met with patient patient unable to comprehend diabetes education. Explained to patient that her labs are diagnostic of DM2, will need monitoring in future. Spoke to nurse, patient with AMS, is unable to ambulate and most likely discharging to
[facility] nursing facility.
--- NOTE | 2025-01-30 12:11 | W.PN.HOSP.TC ---
Today's Communication/Plan
-
Medically stable for Dc
Assessment / Plan
Assessment / Plan
Impression:
70 years old female with hypertension hyperlipidemia presented with altered mental status of unclear etiology.� She has chronic decline for months but acutely decompensated recently.� Neurology on board.� MRI of the brain with tumefactive
demyelination.� Possible UTI on IV Rocephin awaiting for cultures.� Mental status improved, started on empiric dexamethasone.
Status post lumbar puncture.
No apparent etiology, steroid discontinued.
MRI thoracic done showed There is mild loss of height of the T8 vertebral body with mild STIR signal and enhancement consistent with acute/subacute compression fracture.
There are apparent short segment foci of T2 hyperintense, nonenhancing signal within the lateral aspect of the cord at the T10-T11 and T11-T12 levels, possibly related to demyelinating disease or myelitis. There is no associated enhancement
MRI cervical spine shows:
Nonspecific myelopathy along the left lateral margin of the cervical cord at the C3 level. Acute abnormal enhancement.
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 Multilevel degenerative changes with central canal stenosis compressing the cervical cord, and variable foraminal stenosis.
Otherwise medically cleared for discharge
Assessment/plan:
Acute mental status changes/acute metabolic encephalopathy
Unclear etiology but rule out stroke versus cognitive deficits related vs toxic metabolic encephalopathy versus ADEM vs MS vs other
MRI of the brain repeated with gadolinium and it shows possible tumefactive demyelination--> awaiting for neurology input.
Discussed with neurology if she needs LP but he said to hold on and will give further recommendations.
Will get psychiatry consult today since she is also requiring restraints-discussed with psychiatry via [place] text today.
Continue monitor neurological status
Continue ASA for stroke prevention
Checking fasting lipids
PT OT SP eval
Discussed with family at bedside today as well as RN and nurse case management at bedside.
Status post lumbar puncture
normal ammonia
continue Dexa
01/29
Discontinue dexamethasone.
Pending MRI cervical spine
01/30
MRI cervical spine shows:
Nonspecific myelopathy along the left lateral margin of the cervical cord at the C3 level. Acute abnormal enhancement.
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 Multilevel degenerative changes with central canal stenosis compressing the cervical cord, and variable foraminal stenosis.
Discussed with neurology no additional treatment or further workup needed, patient otherwise medically cleared for discharge
Abnormal UA, probable UTI:
Continue IV ceftriaxone
WBC 11.7--> 7.4
Urine culture shows possible contaminant
01/29
Discontinue further antibiotics
New onset type 2 diabetes mellitus.
Patient with steroid-induced hyperglycemia but hemoglobin A1c came back 6.7.
Will start low-dose metformin, continue insulin sliding scale.
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
Vitamin B12 deficiency:
Continue B12 supplementation
Conjunctivitis:
Tobramycin eye drop
Erythrocytosis:
Hemoconcentration versus ?polycythemia
Received IV fluid and Hb went down slightly
Monitor hemoglobin
Hypertension:
Resumed antihypertensives but hold hctz due to hypokalemia
Hypokalemia:
Replete and trend
Hypothyroidism:
Resume thyroid replacement
tsh within normal
History of hyperlipidemia
Continue statin
Rash:
Appears to be chronic in nature
Resume zyrtec
She is on Dupixent as outpatient-hold for now until known infection status.
Resume upon discharge
Per family she had skin biopsies in the past with no clear diagnosis.
CODE STATUS: Full code
DVT prophylaxis: Lovenox
Diet: Cardiac diet
Family communication: Discussed with Ex- at bedside
Total time spent on today's encounter was 65 minutes which included time spent in counseling the patient/family regarding diagnosis and treatment plan as listed above, goals of care, and symptom management. Case was discussed with nursing staff,
specialists, and care coordinators/case management. All labs and imaging personally reviewed by me. Remainder the time spent in detailed review of previous records, lab data, imaging, and other medical provider documentation.
Anticipated Discharge: Today
Subjective/Interval History
-
Date of Service: January 30, 2025
Patient seen and examined at bedside.
Overall mental status improved.
Discussed with neurology, no further workup as inpatient and okay to discharge to rehab.
Objective Data
-
Labs:
Laboratory Results
01/30/25
05:43
WBC 9.8
Hgb 14.9
Hct 42.5
Plt Count 228
Sodium 140
Potassium 4.0
Chloride 105
Carbon Dioxide 26
BUN 22 H
Creatinine 0.6
Glucose 140 H
Calcium 9.1
Vital Signs:
Vital Signs
Temp Pulse Resp BP Pulse Ox
97.8 F 70 18 127/65 97
01/30/25 07:05 01/30/25 08:32 01/30/25 07:05 01/30/25 08:32 01/30/25 07:05
I&O
01/29/25 01/30/25 01/31/25
06:59 06:59 06:59
Intake Total 960 / 960 1610 / 1610
Balance 960 / 960 1610 / 1610
Physical Exam
-
General: Comfortable
HEENT: Normocephalic, Atraumatic, Moist Mucous Membranes, No Ptosis, PERRLA and Nose Appears Normal
Respiratory: Rales and Non Labored Respirations
Cardiac: Regular Rhythm and S1/S2
Breast: Deferred by me
GI: Soft, Nontender, Nondistended and Normal Bowel Sounds
Genito-urinary: No Costovertebral Tender
Musculoskeletal: No Clubbing, No Cyanosis and No Edema
Skin: Rash (Diffuse maculopapular rash)
Neuro: Awake, AO x 3, No Motor Deficits and Other (Not fully oriented)
Psych: Calm and Confused
Data Reviewed
-
Diagnostic Radiology: Image personally visualized and interpreted and Report Reviewed by me
CT Scan: Image personally visualized and interpreted and Report Reviewed by me
Ultrasound: Image personally visualized and interpreted and Report Reviewed by me
MRI: Image personally visualized and interpreted and Report Reviewed by me
Medical Tests (Nuc Med, Echo etc): Image personally visualized and interpreted and Report Reviewed by me
Labs: Labs Reviewed by me
Old Records: Reviewed
[2025-01-30] MEDS: NOVOLOG FLEXPEN-LOW RESISTANCE 3 UNITS SC (13:46)
[2025-01-30 15:05] VITALS: BP 127/55
--- NOTE | 2025-01-30 15:21 | W.PN.UPDATE ---
Update Note
Progress Note Update
reviewed chart. spoke with nursing. the patient was sleeping and i did not wake her up. she has not needed prn ativan for agitation in a couple of days. psych will sign off. please call us if you need us to return.
[2025-01-30 17:42] LABS: Glucose - Point of Care 193 mg/dl (70-99)
[2025-01-30] MEDS: NOVOLOG FLEXPEN-LOW RESISTANCE 1 UNITS SC (18:00)
[2025-01-30] MEDS: LOVENOX SC ×2 (18:01→18:07)
[2025-01-30 22:01] LABS: Glucose - Point of Care 124 mg/dl (70-99)
[2025-01-30] MEDS: TOBREX 0.3% EYE DROPS 2 DROP OPHTH (22:06)
[2025-01-30 23:00] VITALS: BP 120/73
[2025-01-31 00:09] LABS: Albumin 3.45 g/dL (3.75-5.01); Alpha 1 Globulin 0.32 g/dL (0.19-0.46); Alpha 2 Globulin 0.93 g/dL (0.48-1.05); SPEP IFE Reflex Not Done; Total Protein-Electrophoresis 6.2 g/dL (6.3-8.2)
[2025-01-31] MEDS: TOBREX 0.3% EYE DROPS OPHTH ×4 (01:10→12:58)
[2025-01-31] MEDS: BENADRYL 25 MG PO ×2 (01:41→22:10)
[2025-01-31 02:31] LABS: Lyme Disease DNA by PCR Not Detected; Lyme Source Serum
[2025-01-31] MEDS: SYNTHROID 25 MCG PO (05:43)
[2025-01-31 06:00] VITALS: BMI 29.7
[2025-01-31 07:54] VITALS: BP 141/83
[2025-01-31 07:54] LABS: Glucose - Point of Care 117 mg/dl (70-99)
[2025-01-31] MEDS: NOVOLOG FLEXPEN-LOW RESISTANCE SC ×2 (08:46→16:44)
[2025-01-31] MEDS: OSCAL CAL 500 500 MG PO (08:50)
[2025-01-31] MEDS: ASPIR LOW (ENTERIC COATED) 81 MG PO (08:50)
[2025-01-31] MEDS: NORVASC 5 MG PO (08:50)
[2025-01-31] MEDS: VITAMIN B-12 1000 MCG PO (08:50)
[2025-01-31] MEDS: VITAMIN D3 (cholecalciferol) 50 MCG PO (08:50)
[2025-01-31] MEDS: CRESTOR 5 MG PO (08:52)
[2025-01-31 09:10] LABS: ANA, HEp-2, IgG Detected (<1:80)
[2025-01-31] MEDS: ATIVAN 1 MG PO ×2 (09:36→20:29)
[2025-01-31 11:51] LABS: Glucose - Point of Care 165 mg/dl (70-99)
[2025-01-31] MEDS: NOVOLOG FLEXPEN-LOW RESISTANCE 1 UNITS SC (12:57)
--- NOTE | 2025-01-31 12:57 | W.PN.HOSP.TC ---
Today's Communication/Plan
-
Medically cleared for DC
Assessment / Plan
Assessment / Plan
Impression:
70 years old female with hypertension hyperlipidemia presented with altered mental status of unclear etiology.� She has chronic decline for months but acutely decompensated recently.� Neurology on board.� MRI of the brain with tumefactive
demyelination.� Possible UTI on IV Rocephin awaiting for cultures.� Mental status improved, started on empiric dexamethasone.
Status post lumbar puncture.
No apparent etiology, steroid discontinued.
MRI thoracic done showed There is mild loss of height of the T8 vertebral body with mild STIR signal and enhancement consistent with acute/subacute compression fracture.
There are apparent short segment foci of T2 hyperintense, nonenhancing signal within the lateral aspect of the cord at the T10-T11 and T11-T12 levels, possibly related to demyelinating disease or myelitis. There is no associated enhancement
MRI cervical spine shows:
Nonspecific myelopathy along the left lateral margin of the cervical cord at the C3 level. Acute abnormal enhancement.
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 Multilevel degenerative changes with central canal stenosis compressing the cervical cord, and variable foraminal stenosis.
Otherwise medically cleared for discharge
Assessment/plan:
Acute mental status changes/acute metabolic encephalopathy
Unclear etiology but rule out stroke versus cognitive deficits related vs toxic metabolic encephalopathy versus ADEM vs MS vs other
MRI of the brain repeated with gadolinium and it shows possible tumefactive demyelination--> awaiting for neurology input.
Discussed with neurology if she needs LP but he said to hold on and will give further recommendations.
Will get psychiatry consult today since she is also requiring restraints-discussed with psychiatry via [place] text today.
Continue monitor neurological status
Continue ASA for stroke prevention
Checking fasting lipids
PT OT SP eval
Discussed with family at bedside today as well as RN and bilingual patient support caseworker at bedside.
Status post lumbar puncture
normal ammonia
continue Dexa
01/29
Discontinue dexamethasone.
Pending MRI cervical spine
01/30
MRI cervical spine shows:
Nonspecific myelopathy along the left lateral margin of the cervical cord at the C3 level. Acute abnormal enhancement.
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 Multilevel degenerative changes with central canal stenosis compressing the cervical cord, and variable foraminal stenosis.
Discussed with neurology no additional treatment or further workup needed, patient otherwise medically cleared for discharge
Abnormal UA, probable UTI:
Continue IV ceftriaxone
WBC 11.7--> 7.4
Urine culture shows possible contaminant
01/29
Discontinue further antibiotics
New onset type 2 diabetes mellitus.
Patient with steroid-induced hyperglycemia but hemoglobin A1c came back 6.7.
Will start low-dose metformin, continue insulin sliding scale.
res counselor
Vitamin B12 deficiency:
Continue B12 supplementation
Conjunctivitis:
Tobramycin eye drop
Erythrocytosis:
Hemoconcentration versus ?polycythemia
Received IV fluid and Hb went down slightly
Monitor hemoglobin
Hypertension:
Resumed antihypertensives but hold hctz due to hypokalemia
Hypokalemia:
Replete and trend
Hypothyroidism:
Resume thyroid replacement
tsh within normal
History of hyperlipidemia
Continue statin
Rash:
Appears to be chronic in nature
Resume zyrtec
She is on Dupixent as outpatient-hold for now until known infection status.
Resume upon discharge
Per family she had skin biopsies in the past with no clear diagnosis.
CODE STATUS: Full code
DVT prophylaxis: Lovenox
Diet: Cardiac diet
Family communication: Discussed with Ex- at bedside
Total time spent on today's encounter was 65 minutes which included time spent in counseling the patient/family regarding diagnosis and treatment plan as listed above, goals of care, and symptom management. Case was discussed with nursing staff,
specialists, and care coordinators/case management. All labs and imaging personally reviewed by me. Remainder the time spent in detailed review of previous records, lab data, imaging, and other medical provider documentation.
Anticipated Discharge: Today
Subjective/Interval History
-
Date of Service: January 31, 2025
Patient seen and examined at bedside.
Sitting in a chair.
Awake but not fully oriented.
Still pending placement.
Objective Data
-
Vital Signs:
Vital Signs
Temp Pulse Resp BP Pulse Ox
98.4 F 84 14 141/83 96
01/31/25 07:54 01/31/25 07:54 01/31/25 07:54 01/31/25 07:54 01/31/25 07:54
I&O
01/30/25 01/31/25 02/01/25
06:59 06:59 06:59
Intake Total 1610 / 1610 1320 / 1320 960 / 960
Balance 1610 / 1610 1320 / 1320 960 / 960
Physical Exam
-
General: Comfortable
HEENT: Normocephalic, Atraumatic, Moist Mucous Membranes, No Ptosis, PERRLA and Nose Appears Normal
Respiratory: Rales and Non Labored Respirations
Cardiac: Regular Rhythm and S1/S2
Breast: Deferred by me
GI: Soft, Nontender, Nondistended and Normal Bowel Sounds
Genito-urinary: No Costovertebral Tender
Musculoskeletal: No Clubbing, No Cyanosis and No Edema
Skin: Rash (Diffuse maculopapular rash)
Neuro: Awake, AO x 3, No Motor Deficits and Other (Not fully oriented)
Psych: Calm and Confused
Data Reviewed
-
Diagnostic Radiology: Image personally visualized and interpreted and Report Reviewed by me
CT Scan: Image personally visualized and interpreted and Report Reviewed by me
Ultrasound: Image personally visualized and interpreted and Report Reviewed by me
MRI: Image personally visualized and interpreted and Report Reviewed by me
Medical Tests (Nuc Med, Echo etc): Image personally visualized and interpreted and Report Reviewed by me
Labs: Labs Reviewed by me
Old Records: Reviewed
[2025-01-31 15:35] VITALS: BP 130/77
--- NOTE | 2025-01-31 16:00 | CM ---
CM called pt's ex-, Damian; VM message left regarding discharge and options for long line [facility]ster care. Pt accepted at [facility] and [facility] will accept pending bed availability. Multiple other facilities have declined admission.
CM to continue; will f/u in AM.
[2025-01-31 16:40] LABS: Glucose - Point of Care 134 mg/dl (70-99)
--- NOTE | 2025-01-31 16:52 | PTCARENOTE ---
patient continues with confusion and forgetfulness. not able to reorient to reality as she quickly forgets within a few seconds. she has difficulty following simple commands and directions. tolerating diet, vss, frequently attempts to transfer oob
to bsc by herself. bed alarm maintained, will continue to monitor.
[2025-01-31] MEDS: LOVENOX SC (18:10)
[2025-01-31] MEDS: TOBREX 0.3% EYE DROPS 2 DROP OPHTH ×2 (18:10→20:29)
[2025-01-31] MEDS: GLUCOPHAGE 500 MG PO (18:11)
[2025-01-31 20:32] LABS: Glucose - Point of Care 144 mg/dl (70-99)
[2025-01-31 20:57] LABS: Vitamin B1, Whole Blood 159 nmol/L (70-180)
[2025-01-31 23:40] VITALS: BP 136/70
[2025-02-01] MEDS: TOBREX 0.3% EYE DROPS OPHTH ×3 (01:35→18:26)
[2025-02-01] MEDS: SYNTHROID 25 MCG PO (05:52)
[2025-02-01 07:01] VITALS: BMI 29.7
[2025-02-01 07:56] LABS: Glucose - Point of Care 137 mg/dl (70-99)
[2025-02-01 08:04] VITALS: BP 133/73
[2025-02-01] MEDS: NOVOLOG FLEXPEN-LOW RESISTANCE SC ×2 (08:46→18:30)
[2025-02-01] MEDS: OSCAL CAL 500 500 MG PO (08:48)
[2025-02-01] MEDS: ASPIR LOW (ENTERIC COATED) 81 MG PO (08:48)
[2025-02-01] MEDS: NORVASC 5 MG PO (08:48)
[2025-02-01] MEDS: GLUCOPHAGE 500 MG PO ×2 (08:48→18:26)
[2025-02-01] MEDS: VITAMIN B-12 1000 MCG PO (08:48)
[2025-02-01] MEDS: VITAMIN D3 (cholecalciferol) 50 MCG PO (08:48)
[2025-02-01] MEDS: TOBREX 0.3% EYE DROPS 1 DROP OPHTH ×2 (08:49→12:12)
[2025-02-01] MEDS: CRESTOR 5 MG PO (08:51)
--- NOTE | 2025-02-01 10:33 | W.PN.HOSP.TC ---
Today's Communication/Plan
-
Medically stable. Awaiting placement
Assessment / Plan
Assessment / Plan
Assessment:
AMS - resoled
- Neuro workup showed 'tumefactive demyelination' in MRI brain transiently on steroids but discontinued after normal LP
- C MRI: Nonspecific myelopathy along the left lateral margin of the cervical cord at the C3 level. Acute abnormal enhancement. 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
Multilevel degenerative changes with central canal stenosis compressing the cervical cord, and variable foraminal stenosis.
- T MRI: There is mild loss of height of the T8 vertebral body with mild STIR signal and enhancement consistent with acute/subacute compression fracture. There are apparent short segment foci of T2 hyperintense, nonenhancing signal within the
lateral aspect of the cord at the T10-T11 and T11-T12 levels, possibly related to demyelinating disease or myelitis. There is no associated enhancement.
- Per Neurology; possible Alzheimer vs PD - not able to formally diagnose in acute setting. Chronic progressive encephalopathy. Possible med induced from Dupilumab.
- OP neuro f/u
- continue ASA
- therapy evals: SNF pending
Abnormal UA
- UCx: contaminant. off antibiotics
New onset type 2 DM
- continue Metformin
- A1c 6.7%
Vitamin B12 deficiency - on replacement
Conjunctivitis
- Tobramycin eye drop
Erythrocytosis
- Hemoconcentration versus ?polycythemia
- received IV fluid and Hb went down slightly
- Monitor hemoglobin
Essential HTN
- continue Norvasc
- HCTZ stopped due to hypokalemia
Hypokalemia
- replete prn
Hypothyroidism
- continue replacement
History of hyperlipidemia
- continue statin
Chronic Rash
- on Zyrtec
- Dupilumab on hold
DVT ppx: Lovenox
Code: Full
Anticipated Discharge: > 48 hours
Subjective/Interval History
-
Date of Service: February 01, 2025
resting comfortably, no complaints
Objective Data
-
Vital Signs:
Vital Signs
Temp Pulse Resp BP Pulse Ox
97.8 F 90 18 133/73 98
02/01/25 08:04 02/01/25 08:04 02/01/25 08:04 02/01/25 08:04 02/01/25 08:04
I&O
01/31/25 02/01/25 02/02/25
06:59 06:59 06:59
Intake Total 1320 / 1320 1919 / 1919
Balance 1320 / 1320 1919 / 0
Physical Exam
-
General: No Apparent Distress
HEENT: Normocephalic and Atraumatic
Respiratory: Negative Wheezes
Cardiac: Regular Rhythm and S1/S2
GI: Soft and Nontender
Genito-urinary: No Costovertebral Tender
Musculoskeletal: No Edema
Neuro: AO x 3
Hematologic / Lymphatic: No Lymphadenopathy
Psych: Calm
Data Reviewed
-
Total Time Spent with Patient (in minutes): 41
Labs: Labs Reviewed by me
[2025-02-01] MEDS: ATIVAN 1 MG PO (10:55)
[2025-02-01] MEDS: REFRESH EYE DROPS (PF) 1 DROPS OPHTH (10:55)
[2025-02-01] MEDS: BENADRYL 25 MG PO (10:55)
[2025-02-01 11:46] LABS: Glucose - Point of Care 215 mg/dl (70-99)
[2025-02-01] MEDS: NOVOLOG FLEXPEN-LOW RESISTANCE 2 UNITS SC (12:12)
[2025-02-01 15:13] LABS: ANA Pattern Homogeneous
--- NOTE | 2025-02-01 15:27 | PTCARENOTE ---
Pt jumped up multiple times an hour. Each time wanting to go onto bsc to void bathroom to have a bm or to sit in chair. Around 1300 pt had explosive foul smelling diarrhea that was incontinent that landed on [place] floor and clothing, Pt assisted
OOB to BSC, room cleansed with orange top contained wipes, notified and ordered stool for Cdiff, came back negative but i kept pt on enhanced precautions. Since that moment. I have changed pt two times of moderate to large amounts of loose foul
odor stool with partially diagested food/ mucous. Pt now resting in bed
[2025-02-01] MEDS: LOVENOX 40 MG SC (18:26)
[2025-02-01 18:35] LABS: Glucose - Point of Care 105 mg/dl (70-99)
[2025-02-01 21:37] LABS: Glucose - Point of Care 123 mg/dl (70-99)
[2025-02-01] MEDS: TOBREX 0.3% EYE DROPS 2 DROP OPHTH (22:25)
[2025-02-01 23:00] VITALS: BP 139/70
[2025-02-02] MEDS: TOBREX 0.3% EYE DROPS OPHTH ×3 (00:03→23:58)
[2025-02-02 06:00] VITALS: BMI 28.6
[2025-02-02] MEDS: SYNTHROID 25 MCG PO (06:05)
[2025-02-02 07:05] VITALS: BP 137/79
[2025-02-02 08:08] LABS: Glucose - Point of Care 134 mg/dl (70-99)
[2025-02-02] MEDS: NOVOLOG FLEXPEN-LOW RESISTANCE SC ×2 (09:32→18:16)
[2025-02-02] MEDS: REFRESH EYE DROPS (PF) 1 DROPS OPHTH (09:33)
[2025-02-02] MEDS: ATIVAN 1 MG PO ×2 (09:33→20:53)
[2025-02-02] MEDS: BENADRYL 25 MG PO ×2 (09:33→20:52)
[2025-02-02] MEDS: VITAMIN B-12 1000 MCG PO (09:34)
[2025-02-02] MEDS: CRESTOR 5 MG PO (09:34)
[2025-02-02] MEDS: ASPIR LOW (ENTERIC COATED) 81 MG PO (09:34)
[2025-02-02] MEDS: GLUCOPHAGE 500 MG PO (09:34)
[2025-02-02] MEDS: NORVASC 5 MG PO (09:34)
[2025-02-02] MEDS: OSCAL CAL 500 500 MG PO (09:34)
[2025-02-02] MEDS: TOBREX 0.3% EYE DROPS 1 DROP OPHTH ×3 (09:34→17:02)
[2025-02-02] MEDS: VITAMIN D3 (cholecalciferol) 50 MCG PO (09:34)
--- NOTE | 2025-02-02 11:31 | W.PN.HOSP.TC ---
Today's Communication/Plan
-
check norovirus, f/u stool studies. C. Diff negative
repeat UA/Cx pending
Assessment / Plan
Assessment / Plan
Assessment:
AMS - resoled
- Neuro workup showed 'tumefactive demyelination' in MRI brain transiently on steroids but discontinued after normal LP
- C MRI: Nonspecific myelopathy along the left lateral margin of the cervical cord at the C3 level. Acute abnormal enhancement. 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
Multilevel degenerative changes with central canal stenosis compressing the cervical cord, and variable foraminal stenosis.
- T MRI: There is mild loss of height of the T8 vertebral body with mild STIR signal and enhancement consistent with acute/subacute compression fracture. There are apparent short segment foci of T2 hyperintense, nonenhancing signal within the
lateral aspect of the cord at the T10-T11 and T11-T12 levels, possibly related to demyelinating disease or myelitis. There is no associated enhancement.
- Per Neurology; possible Alzheimer vs PD - not able to formally diagnose in acute setting. Chronic progressive encephalopathy. Possible med induced from Dupilumab.
- OP neuro f/u
- continue ASA
- therapy evals: SNF pending
Abnormal UA
- UCx: contaminant
- repeat UA/Cx today
New onset type 2 DM
- continue Metformin
- A1c 6.7%
Vitamin B12 deficiency - on replacement
Conjunctivitis
- Tobramycin eye drop
Erythrocytosis
- Hemoconcentration versus ?polycythemia
- received IV fluid and Hb went down slightly
- Monitor hemoglobin
Essential HTN
- continue Norvasc
- HCTZ stopped due to hypokalemia
Hypokalemia
- replete prn
Hypothyroidism
- continue replacement
History of hyperlipidemia
- continue statin
Chronic Rash
- on Zyrtec
- Dupilumab on hold
Diarrhea
- check norovirus and follow stool studies
- C. Diff negative
DVT ppx: Lovenox
Code: Full
Anticipated Discharge: > 48 hours
Subjective/Interval History
-
Date of Service: February 02, 2025
patient reports intermittent diarrhea
also RN concerned for foul smelling urine
Objective Data
-
Vital Signs:
Vital Signs
Temp Pulse Resp BP Pulse Ox
98.6 F 86 18 137/79 97
02/02/25 07:05 02/02/25 07:05 02/02/25 07:05 02/02/25 07:05 02/02/25 07:05
I&O
02/01/25 02/02/25 02/03/25
06:59 06:59 06:59
Intake Total 0 / 1919 240 / 240
Balance 1920 / 1919 240 / 240
Physical Exam
-
General: No Apparent Distress
HEENT: Normocephalic and Atraumatic
Respiratory: Negative Wheezes
Cardiac: Regular Rhythm and S1/S2
GI: Soft and Nontender
Musculoskeletal: No Edema
Neuro: AO x 3
Psych: Calm
Data Reviewed
-
Total Time Spent with Patient (in minutes): 45
Labs: Labs Reviewed by me
[2025-02-02 11:43] LABS: Glucose - Point of Care 176 mg/dl (70-99)
[2025-02-02 11:53] LABS: % Basophils 0.1 % (0-2); % Immature Granulocytes 0.8 % (0-0.5); % Lymphocytes 13.8 % (20.5-51.1); % Monocytes 3.6 % (1.7-9.3); % Neutrophils 81.7 % (42.2-75.2); Absolute Immature Granulocytes 0.1 10^3/uL (0-0.05); Absolute Lymphocytes 1.7 10^3/uL (1.2-3.4); Absolute Monocytes 0.4 10^3/uL (0.1-0.6); Absolute Neutrophils 9.7 10^3/uL (1.4-6.5); Hematocrit 43.7 % (37.0-47.0); Mean Corp Hgb Conc. 34.3 g/dL (33.0-37.0); Mean Corpuscular Hgb 28.6 pg (27.0-31.0); Mean Corpuscular Volume 83.4 fL (81.0-99.0); Nucleated Red Blood Cells % 0 %; Platelet Count 193 10^3/uL (130-400); Red Blood Cell Count 5.24 10^6/uL (4.20-5.40); Red Cell Dist. Width 13.9 % (11.5-14.5); White Blood Cell Count 11.9 10^3/uL (4.8-10.8)
[2025-02-02 12:06] LABS: Blood Urea Nitrogen 16 mg/dl (7-17); Calcium 8.9 mg/dl (8.4-10.2); Carbon Dioxide 25 mmol/L (22-30); Chloride 105 mmol/L (98-107); Estimated Creatinine Clearance 73 ml/min; Glucose 199 mg/dl (70-99); Potassium 3.5 mmol/L (3.5-5.1); Sodium 137 mmol/L (135-145); eGFR > 60.00
[2025-02-02] MEDS: NOVOLOG FLEXPEN-LOW RESISTANCE 2 UNITS SC (12:16)
--- NOTE | 2025-02-02 14:20 | W.PN.UPDATE ---
Update Note
Progress Note Update
Had an extensive discussion with Mr. Angel and his spouse regarding patient's clinical presentation, differential diagnosis, serological, CSF and radiographic findings. Mr. Mckeon will be considering palliative care given patient's poor
functional and cognitive baseline.
All questions were answered.
Radha Carrillo M.D.
--- NOTE | 2025-02-02 14:25 | W.PN.UPDATE ---
Update Note
Progress Note Update
Discussed with Neurology and MICAELA Salgado. Scans demonstrate a chronic dementia pattern in addition to demyelinating lesions seen on imaging this admission. Neurology discussed palliative care with MICAELA Salgado and is in agreement.
with + SHYANN and SS-A, option of transfer to tertiary care center for rheumatological evaluation brought up with MICAELA Salgado - he opts against transfer. He states that he does not feel patient would benefit from transfer as he feels she will not
clinically improve due to underlying likely dementia. He is interested in SNF placement and palliative care, with likely transition to hospice in the future.
[2025-02-02 14:38] LABS: Urine Albumin Negative (Neg - Trace); Urine Bilirubin Negative (Negative); Urine Character Clear (Clear); Urine Color Yellow; Urine Glucose Negative (Negative); Urine Ketone Negative (Negative); Urine Leukocyte 2+ (Negative); Urine Nitrite Negative (Negative); Urine Occult Blood Negative (Negative); Urine Specific Gravity 1.015 (<1.030); Urine Urobilinogen Negative (Neg - 1+)
[2025-02-02] MEDS: IMODIUM 2 MG PO (14:54)
[2025-02-02 15:08] LABS: Urine Bacteria Few (Negative); Urine Red Blood Cell 0-2 /HPF (0-2); Urine White Cell 16-20 /HPF (0-5)
[2025-02-02 16:22] VITALS: BP 136/79
[2025-02-02] MEDS: ROCEPHIN 1000 MG IV (16:52)
[2025-02-02 17:27] LABS: Glucose - Point of Care 89 mg/dl (70-99)
[2025-02-02] MEDS: GLUCOPHAGE PO (18:16)
[2025-02-02] MEDS: LOVENOX 40 MG SC (18:16)
[2025-02-02] MEDS: TOBREX 0.3% EYE DROPS 2 DROP OPHTH (20:52)
[2025-02-02 22:34] LABS: Glucose - Point of Care 135 mg/dl (70-99)
[2025-02-02 23:00] VITALS: BP 119/74
[2025-02-03] MEDS: ATIVAN 1 MG PO ×2 (02:18→22:59)
[2025-02-03] MEDS: BENADRYL 25 MG PO (02:18)
[2025-02-03] MEDS: TOBREX 0.3% EYE DROPS OPHTH (04:03)
[2025-02-03] MEDS: SYNTHROID 25 MCG PO (05:47)
[2025-02-03 06:00] VITALS: BMI 28.0
[2025-02-03 07:05] VITALS: BP 128/81
[2025-02-03 08:23] LABS: % Basophils 0.1 % (0-2); % Immature Granulocytes 0.7 % (0-0.5); % Lymphocytes 24.4 % (20.5-51.1); % Monocytes 6.2 % (1.7-9.3); % Neutrophils 68.6 % (42.2-75.2); Absolute Immature Granulocytes 0.1 10^3/uL (0-0.05); Absolute Lymphocytes 2.2 10^3/uL (1.2-3.4); Absolute Monocytes 0.6 10^3/uL (0.1-0.6); Hematocrit 45.7 % (37.0-47.0); Hemoglobin 15.5 g/dL (12.0-16.0); Mean Corp Hgb Conc. 33.9 g/dL (33.0-37.0); Mean Corpuscular Hgb 28.7 pg (27.0-31.0); Mean Corpuscular Volume 84.5 fL (81.0-99.0); Nucleated Red Blood Cells % 0 %; Platelet Count 186 10^3/uL (130-400); Red Blood Cell Count 5.41 10^6/uL (4.20-5.40); Red Cell Dist. Width 14.3 % (11.5-14.5); White Blood Cell Count 8.8 10^3/uL (4.8-10.8)
[2025-02-03 08:26] VITALS: BP 130/88; BP 137/84; PULSE 97; O2SAT 98
[2025-02-03 08:32] LABS: Glucose - Point of Care 141 mg/dl (70-99)
[2025-02-03 08:54] LABS: Blood Urea Nitrogen 14 mg/dl (7-17); Calcium 8.9 mg/dl (8.4-10.2); Carbon Dioxide 24 mmol/L (22-30); Chloride 105 mmol/L (98-107); Estimated Creatinine Clearance 85 ml/min; Glucose 123 mg/dl (70-99); Potassium 3.8 mmol/L (3.5-5.1); Sodium 139 mmol/L (135-145); eGFR > 60.00
[2025-02-03] MEDS: GLUCOPHAGE 500 MG PO ×2 (09:15→17:39)
[2025-02-03] MEDS: VITAMIN D3 (cholecalciferol) 50 MCG PO (09:15)
[2025-02-03] MEDS: NORVASC 5 MG PO (09:15)
[2025-02-03] MEDS: NOVOLOG FLEXPEN-LOW RESISTANCE SC ×3 (09:15→18:11)
[2025-02-03] MEDS: VITAMIN B-12 1000 MCG PO (09:15)
[2025-02-03] MEDS: ASPIR LOW (ENTERIC COATED) 81 MG PO (09:16)
[2025-02-03] MEDS: TOBREX 0.3% EYE DROPS 2 DROP OPHTH ×3 (09:19→17:29)
[2025-02-03] MEDS: CRESTOR 5 MG PO (09:19)
[2025-02-03] MEDS: OSCAL CAL 500 500 MG PO (09:23)
[2025-02-03] MEDS: RISPERDAL 0.25 MG PO (10:05)
[2025-02-03] MEDS: Pyridium 100 MG PO (10:05)
--- NOTE | 2025-02-03 10:35 | W.PN.HOSP.TC ---
Today's Communication/Plan
-
repeat urine culture pending
empiric Rocephin
prn Risperdal
DC planning to SNF with palliative approach per POA
Assessment / Plan
Assessment / Plan
Assessment:
AMS - resoled
- Neuro workup showed 'tumefactive demyelination' in MRI brain transiently on steroids but discontinued after LP not suggestive of MS
- C MRI: Nonspecific myelopathy along the left lateral margin of the cervical cord at the C3 level. Acute abnormal enhancement. 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
Multilevel degenerative changes with central canal stenosis compressing the cervical cord, and variable foraminal stenosis.
- T MRI: There is mild loss of height of the T8 vertebral body with mild STIR signal and enhancement consistent with acute/subacute compression fracture. There are apparent short segment foci of T2 hyperintense, nonenhancing signal within the
lateral aspect of the cord at the T10-T11 and T11-T12 levels, possibly related to demyelinating disease or myelitis. There is no associated enhancement.
- Per Neurology; possible Alzheimer vs PD underlying with brain atrophy on neuroimaging. - not able to formally diagnose in acute setting. Chronic progressive encephalopathy. Possible med induced from Dupilumab. Possible rheumatoligical etiology
with +SHYANN, SS-A.
- no rheumatology inpatient service at , offered [facility] transfer. POA Damian opted for no transfer and will pursue palliative (eventually hospice care) - see note from 02/02
- continue ASA
- therapy evals: SNF pending
Abnormal UA
- UCx: contaminant; repeat pending
- continue Rocephin, day 2
New onset type 2 DM
- continue Metformin
- A1c 6.7%
Vitamin B12 deficiency - on replacement
Conjunctivitis
- Tobramycin eye drop
Erythrocytosis
- Hemoconcentration versus ?polycythemia
- received IV fluid and Hb went down slightly
- Monitor hemoglobin
Essential HTN
- continue Norvasc
- HCTZ stopped due to hypokalemia
Hypokalemia
- replete prn
Hypothyroidism
- continue replacement
History of hyperlipidemia
- continue statin
Chronic Rash
- on Zyrtec
- Dupilumab on hold
Diarrhea
- stool studies negative
- prn Imodium
DVT ppx: Lovenox
Code: Full
Anticipated Discharge: 24 - 48 hours
Subjective/Interval History
-
Date of Service: February 03, 2025
diarrhea improving with Imodium
no overnight events
Objective Data
-
Labs:
Laboratory Results
02/03/25
07:18
WBC 8.8
Hgb 15.5
Hct 45.7
Plt Count 186
Sodium 139
Potassium 3.8
Chloride 105
Carbon Dioxide 24
BUN 14
Creatinine 0.6
Glucose 123 H
Calcium 8.9
Vital Signs:
Vital Signs
Temp Pulse Resp BP Pulse Ox
98.0 F 95 18 128/81 99
02/03/25 07:05 02/03/25 07:05 02/03/25 07:05 02/03/25 07:05 02/03/25 07:05
I&O
02/02/25 02/03/25 02/04/25
06:59 06:59 06:59
Intake Total 240 / 240 960 / 960
Balance 240 / 240 960 / 960
Physical Exam
-
General: No Apparent Distress
HEENT: Normocephalic
Respiratory: Negative Wheezes
Cardiac: Regular Rhythm and S1/S2
GI: Soft
Musculoskeletal: No Edema
Neuro: Awake and Alert
Psych: Calm and Apparent Dementia
Data Reviewed
-
Total Time Spent with Patient (in minutes): 41
Labs: Labs Reviewed by me
--- NOTE | 2025-02-03 10:49 | CM ---
Addendum entered by Carolina Lange 02/03/25 11:57:
Spoke with Pankaj from [facility], no short term or LTC beds available, can check back .
Spoke with Dae from [facility], they are able to accept patient Monday if medically stable. Will need insurance auth.
NPI for [facility]- [id number]
- Dr Silva NPI# [id number]
Family is going to facility tomorrow for a meeting and will let CM know if they are agreeable.
Original Note:
Spoke with Tyler, primary contact.
Updated him re available beds. He is not interested in [place].
Will look at [facility] and [facility] and rehab and get back to this CM.
At Tyler's request, left message at [facility] to see if beds are available this week.
Plan: skilled to LTC possible hospice when stable and bed available.
[2025-02-03 11:49] LABS: Glucose - Point of Care 117 mg/dl (70-99)
[2025-02-03 15:05] VITALS: BP 127/74
[2025-02-03 16:00] VITALS: BP 130/88; BP 137/84; PULSE 97; O2SAT 98
--- NOTE | 2025-02-03 16:50 | PTCARENOTE ---
Addendum entered by Eim Sewell RN 02/03/25 16:50:
patient anxious and extremely impulsive and with urinary frequency and urgency and every 5 minutes or less she is trying to transfer to BSC to void. urine foul smelling. PVR 35mls. due to patient being confused not sure if bladder
irritated/pain. notified Dr. Haider at 09 and requested Pyridium and anxiety and/or something for agitation. Dr. Haider and agreed and ordered Pyridium and Risperdal. both medications administered (see MAR). after receiving medications patient
has been up to BSC less and sleeping intermittently, urine orange, sat oob in chair for lunch, will continue to monitor.
Original Note:
patient anxious and extremely impulsive and with urinary frequency and urgency and every 5 minutes or less she is trying to transfer to [facility] to void. urine foul smelling. PVR 35mls. due to patient being confused not sure if bladder
irritated/pain. notified Dr. Haider at 09 and requested Pyridium and anxiety and/or something for agitation. Dr. Haider and agreed and ordered Pyridium and Risperdal. both medications administered (see MAR). after receiving medications patient
has been up to BSC less and sleeping intermittently. sat oob in chair for lunch, will continue to monitor.
[2025-02-03] MEDS: LOVENOX 40 MG SC (17:30)
[2025-02-03] MEDS: STERILE WATER FOR INJECTION 10 ML IV (18:07)
[2025-02-03] MEDS: ROCEPHIN 1000 MG IV (18:07)
--- NOTE | 2025-02-03 18:11 | PTCARENOTE ---
patient refused pre dinner accucheck. benefits and risks verbalized to patient, will continue to monitor.
[2025-02-03] MEDS: TOBREX 0.3% EYE DROPS 1 DROP OPHTH (21:26)
[2025-02-03 22:17] LABS: Glucose - Point of Care 128 mg/dl (70-99)
[2025-02-03 23:15] VITALS: BP 125/69
[2025-02-04] MEDS: TOBREX 0.3% EYE DROPS OPHTH ×2 (00:14→04:35)
[2025-02-04 04:16] VITALS: BMI 28.3
[2025-02-04] MEDS: SYNTHROID 25 MCG PO (05:08)
[2025-02-04] MEDS: GLUCOPHAGE 500 MG PO ×2 (07:49→17:10)
[2025-02-04] MEDS: OSCAL CAL 500 500 MG PO (07:49)
[2025-02-04] MEDS: CRESTOR 5 MG PO (07:49)
[2025-02-04] MEDS: Pyridium 100 MG PO ×3 (07:49→22:44)
[2025-02-04] MEDS: ASPIR LOW (ENTERIC COATED) 81 MG PO (07:49)
[2025-02-04] MEDS: NORVASC 5 MG PO (07:50)
[2025-02-04] MEDS: VITAMIN D3 (cholecalciferol) 50 MCG PO (07:50)
[2025-02-04] MEDS: VITAMIN B-12 1000 MCG PO (07:50)
[2025-02-04] MEDS: TOBREX 0.3% EYE DROPS 1 DROP OPHTH (07:50)
[2025-02-04 07:52] VITALS: BP 138/71
[2025-02-04 07:56] LABS: Glucose - Point of Care 127 mg/dl (70-99)
[2025-02-04] MEDS: BENADRYL 25 MG PO ×3 (07:57→22:44)
[2025-02-04] MEDS: NOVOLOG FLEXPEN-LOW RESISTANCE SC (08:08)
--- NOTE | 2025-02-04 10:56 | W.PN.HOSP.TC ---
Today's Communication/Plan
-
continue Rocephin
prn Imodium for diarrhea
DC planning to SNF
Assessment / Plan
Assessment / Plan
Assessment:
AMS - resoled
- Neuro workup showed 'tumefactive demyelination' in MRI brain transiently on steroids but discontinued after LP not suggestive of MS
- C MRI: Nonspecific myelopathy along the left lateral margin of the cervical cord at the C3 level. Acute abnormal enhancement. 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
Multilevel degenerative changes with central canal stenosis compressing the cervical cord, and variable foraminal stenosis.
- T MRI: There is mild loss of height of the T8 vertebral body with mild STIR signal and enhancement consistent with acute/subacute compression fracture. There are apparent short segment foci of T2 hyperintense, nonenhancing signal within the
lateral aspect of the cord at the T10-T11 and T11-T12 levels, possibly related to demyelinating disease or myelitis. There is no associated enhancement.
- Per Neurology; possible Alzheimer vs PD underlying with brain atrophy on neuroimaging. - not able to formally diagnose in acute setting. Chronic progressive encephalopathy. Possible med induced from Dupilumab. Possible rheumatoligical etiology
with +SHYANN, SS-A.
- no rheumatology inpatient service at , offered [facility] transfer. MICAELA Salgado opted for no transfer and will pursue palliative (eventually hospice care) - see note from 02/02
- continue ASA
- therapy evals: SNF pending
E. Coli UTI
- continue Rocephin, day 3
New onset type 2 DM
- continue Metformin
- A1c 6.7%
Vitamin B12 deficiency - on replacement
Conjunctivitis
- Tobramycin eye drop
Erythrocytosis
- Hemoconcentration versus ?polycythemia
- received IV fluid and Hb went down slightly
- Monitor hemoglobin
Essential HTN
- continue Norvasc
- HCTZ stopped due to hypokalemia
Hypokalemia
- replete prn
Hypothyroidism
- continue replacement
History of hyperlipidemia
- continue statin
Chronic Rash
- on Zyrtec
- Dupilumab on hold
Diarrhea
- stool studies negative
- prn Imodium
DVT ppx: Lovenox
Code: Full
Anticipated Discharge: 24 - 48 hours
Subjective/Interval History
-
Date of Service: February 04, 2025
diarrhea reducing in frequency
Objective Data
-
Vital Signs:
Vital Signs
Temp Pulse Resp BP Pulse Ox
98.4 F 91 18 138/71 96
02/04/25 07:52 02/04/25 07:52 02/04/25 07:52 02/04/25 07:52 02/04/25 07:52
I&O
02/03/25 02/04/25 02/05/25
06:59 06:59 06:59
Intake Total 960 / 960 1380 / 1380
Balance 960 / 960 1380 / 1380
Physical Exam
-
General: No Apparent Distress
HEENT: Normocephalic and Atraumatic
Respiratory: Negative Wheezes
Cardiac: Regular Rhythm and S1/S2
GI: Soft
Genito-urinary: No Costovertebral Tender
Neuro: AO x 3
Psych: Calm
Data Reviewed
-
Total Time Spent with Patient (in minutes): 45
Labs: Labs Reviewed by me
--- NOTE | 2025-02-04 11:05 | CM ---
[facility] the hospital today to evaluate patient.
Per Joy[facility] the patients ex- was out to the facility to tour today.
Additional information requested and uploaded to [employer].
CM updated.
[2025-02-04 11:44] LABS: Glucose - Point of Care 173 mg/dl (70-99)
[2025-02-04 12:18] LABS: Syphilis/T. pallidum Ab Reflex Negative (Negative)
[2025-02-04] MEDS: NOVOLOG FLEXPEN-LOW RESISTANCE 1 UNITS SC ×2 (13:23→17:11)
[2025-02-04] MEDS: REFRESH EYE DROPS (PF) 1 DROPS OPHTH ×2 (13:32→22:44)
[2025-02-04] MEDS: IMODIUM 2 MG PO (13:32)
--- NOTE | 2025-02-04 16:30 | CM ---
CM met with Franny's ex- and his . They have toured [facility] and think it is 'OK'. [facility] offered a bed today; family not happy about 2 star rating.
They realize that options are limited and left to go speak with the adult children to make them aware of plan for admission to SNF.
[facility] offered a bed today; family not happy about 2 star rating.
CM working on SNF authorization with [facility].
[2025-02-04 16:37] LABS: Glucose - Point of Care 159 mg/dl (70-99)
[2025-02-04] MEDS: LOVENOX 40 MG SC (17:10)
[2025-02-04] MEDS: ROCEPHIN 1000 MG IV (17:10)
[2025-02-04] MEDS: STERILE WATER FOR INJECTION 10 ML IV (17:10)
[2025-02-04 22:05] LABS: Glucose - Point of Care 124 mg/dl (70-99)
[2025-02-04 23:25] VITALS: BP 125/76
[2025-02-05] MEDS: ATIVAN 1 MG PO ×2 (02:20→20:05)
[2025-02-05] MEDS: REFRESH EYE DROPS (PF) 1 DROPS OPHTH (02:20)
[2025-02-05] MEDS: SYNTHROID 25 MCG PO (05:11)
[2025-02-05 06:00] VITALS: BMI 29.0
[2025-02-05 07:20] VITALS: BP 110/68
[2025-02-05 07:31] LABS: Glucose - Point of Care 119 mg/dl (70-99)
[2025-02-05 08:24] VITALS: BP 134/80; PULSE 85
--- NOTE | 2025-02-05 08:57 | W.PN.HOSP.TC ---
Today's Communication/Plan
-
switch to Ertapenem for ESBL UTI
Hydroxyzine and Zaditor for allergic conjunctivitis and pruritus
DC planning to SNF
Assessment / Plan
Assessment / Plan
Assessment:
AMS - resoled
- Neuro workup showed 'tumefactive demyelination' in MRI brain transiently on steroids but discontinued after LP not suggestive of MS
- C MRI: Nonspecific myelopathy along the left lateral margin of the cervical cord at the C3 level. Acute abnormal enhancement. 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
Multilevel degenerative changes with central canal stenosis compressing the cervical cord, and variable foraminal stenosis.
- T MRI: There is mild loss of height of the T8 vertebral body with mild STIR signal and enhancement consistent with acute/subacute compression fracture. There are apparent short segment foci of T2 hyperintense, nonenhancing signal within the
lateral aspect of the cord at the T10-T11 and T11-T12 levels, possibly related to demyelinating disease or myelitis. There is no associated enhancement.
- Per Neurology; possible Alzheimer vs PD underlying with brain atrophy on neuroimaging. - not able to formally diagnose in acute setting. Chronic progressive encephalopathy. Possible med induced from Dupilumab. Possible rheumatoligical etiology
with +SHYANN, SS-A.
- no rheumatology inpatient service at , offered [facility] transfer. MICAELA Salgado opted for no transfer and will pursue palliative (eventually hospice care) - see note from 02/02
- continue ASA
- therapy evals: SNF pending
Multi-drug resistant ESBL E. Coli
- start Invanz, day 1
New onset type 2 DM
- continue Metformin
- A1c 6.7%
Vitamin B12 deficiency - on replacement
Conjunctivitis
- Tobramycin eye drop
- Zaditor for allergic component
Erythrocytosis
- Hemoconcentration versus ?polycythemia
- received IV fluid and Hb went down slightly
- Monitor hemoglobin
Essential HTN
- continue Norvasc
- HCTZ stopped due to hypokalemia
Hypokalemia
- replete prn
Hypothyroidism
- continue replacement
History of hyperlipidemia
- continue statin
Chronic Rash with pruritis
- on Zyrtec
- add Hydroxyzine prn
- Dupilumab on hold
Diarrhea
- stool studies negative
- prn Imodium
DVT ppx: Lovenox
Code: Full
Anticipated Discharge: 24 - 48 hours
Subjective/Interval History
-
Date of Service: February 05, 2025
reports itchy eyes, has been scratching around her eyes
Objective Data
-
Vital Signs:
Vital Signs
Temp Pulse Resp BP Pulse Ox
98.4 F 84 17 110/68 98
02/05/25 07:20 02/05/25 07:20 02/05/25 07:20 02/05/25 07:20 02/05/25 07:20
I&O
02/04/25 02/05/25 02/06/25
06:59 06:59 06:59
Intake Total 1380 / 1380 540 / 540
Balance 1380 / 1380 540 / 540
Physical Exam
-
General: No Apparent Distress
HEENT: Normocephalic, Atraumatic and Other (periorbital irritation from itching/scratching)
Respiratory: Negative Wheezes
Cardiac: Regular Rhythm and S1/S2
GI: Soft and Nontender
Musculoskeletal: No Edema
Neuro: AO x 3
Hematologic / Lymphatic: No Lymphadenopathy
Psych: Calm
Data Reviewed
-
Total Time Spent with Patient (in minutes): 44
Labs: Labs Reviewed by me
[2025-02-05] MEDS: NOVOLOG FLEXPEN-LOW RESISTANCE SC ×3 (09:53→17:01)
[2025-02-05] MEDS: NORVASC 5 MG PO (09:54)
[2025-02-05] MEDS: ASPIR LOW (ENTERIC COATED) 81 MG PO (09:54)
[2025-02-05] MEDS: VITAMIN B-12 1000 MCG PO (09:54)
[2025-02-05] MEDS: CRESTOR 5 MG PO (09:54)
[2025-02-05] MEDS: GLUCOPHAGE 500 MG PO ×2 (09:55→17:36)
[2025-02-05] MEDS: OSCAL CAL 500 500 MG PO (09:55)
[2025-02-05] MEDS: VITAMIN D3 (cholecalciferol) 50 MCG PO (09:55)
[2025-02-05 10:19] LABS: % Basophils 0.1 % (0-2); % Immature Granulocytes 0.9 % (0-0.5); % Lymphocytes 20.9 % (20.5-51.1); % Monocytes 6.3 % (1.7-9.3); % Neutrophils 71.8 % (42.2-75.2); Absolute Immature Granulocytes 0.1 10^3/uL (0-0.05); Absolute Lymphocytes 1.6 10^3/uL (1.2-3.4); Absolute Monocytes 0.5 10^3/uL (0.1-0.6); Absolute Neutrophils 5.6 10^3/uL (1.4-6.5); Hematocrit 47.2 % (37.0-47.0); Hemoglobin 15.5 g/dL (12.0-16.0); Mean Corp Hgb Conc. 32.8 g/dL (33.0-37.0); Mean Corpuscular Hgb 28.2 pg (27.0-31.0); Mean Platelet Volume 9.6 fL (7.4-10.4); Nucleated Red Blood Cells % 0 %; Platelet Count 200 10^3/uL (130-400); Red Blood Cell Count 5.49 10^6/uL (4.20-5.40); Red Cell Dist. Width 14.2 % (11.5-14.5); White Blood Cell Count 7.8 10^3/uL (4.8-10.8)
--- NOTE | 2025-02-05 10:25 | CM ---
Addendum entered by Carolina Lange 02/05/25 10:57:
TC to Emi at [facility] to update re need for IV anbx, await TCB.
Original Note:
TC from Emi from [facility] p# [phone] requesting information for admission.
Family toured and would like them to review for admission.
TC to [facility]/primary contact and verified information could be sent, per Damian they are aware of private pay and would like this instead of skilled rehab if accepted.
Clinical information faxed fax# - [phone]. Line busy will reattempt.
TT from floor nurse, patient will be on IV anbx for ESBL. Will need 7 days of IV anbx.
TC from [facility]
approved skilled rehab at [facility]
Reference # [id number]
start date 02/05/25, NRD 02/07/25
updates to Eliz Milton at P# [phone], fax# [phone].
[2025-02-05] MEDS: INVANZ 60 MG IV (10:34)
[2025-02-05 10:58] LABS: Blood Urea Nitrogen 16 mg/dl (7-17); Calcium 9.2 mg/dl (8.4-10.2); Carbon Dioxide 25 mmol/L (22-30); Chloride 104 mmol/L (98-107); Estimated Creatinine Clearance 86 ml/min; Glucose 164 mg/dl (70-99); Potassium 3.9 mmol/L (3.5-5.1); Sodium 141 mmol/L (135-145); eGFR > 60.00
[2025-02-05 11:29] LABS: Glucose - Point of Care 145 mg/dl (70-99)
[2025-02-05] MEDS: ZYRTEC 10 MG PO (13:10)
[2025-02-05] MEDS: ZADITOR 1 DROP OPHTH ×2 (13:10→20:06)
[2025-02-05 14:20] VITALS: BP 148/84
--- NOTE | 2025-02-05 14:39 | FALL ---
Description of Fall:
Patient called out for help and found by patient healthcare financial analyst on the floor between commode and recliner chair. About 14:15 hrs Patient apparently slid unassisted from commode to floor. Patient reports she attempted to stand and clean self after BM and
felt dizzy, then slid to floor.
Injuries Noted:
No injuries noted assessment. Patient denies pain.
Action Taken:
Patient assessed for c-spine injury on floor. Assisted to stand with staff. Patient cleaned and new gown placed. VS obtained and within normal limits. Head to toe assessment performed and no injuries noted. Patient denied striking head. Attending
MD notified.
Name of Provider Notified: Marcos Haider.
[2025-02-05 16:47] LABS: Glucose - Point of Care 107 mg/dl (70-99)
[2025-02-05] MEDS: LOVENOX 40 MG SC (17:36)
[2025-02-05 20:53] LABS: Glucose - Point of Care 147 mg/dl (70-99)
[2025-02-05 23:52] VITALS: BP 140/80
[2025-02-06] MEDS: RISPERDAL 0.25 MG PO (01:53)
[2025-02-06] MEDS: SYNTHROID 25 MCG PO (05:02)
--- NOTE | 2025-02-06 05:59 | DOWNTIME ---
There was a [employer] Downtime on 02/06/2025 from 0200 to 02/07/2024 at 0318 . Downtime documentation of patient's care, including medication administrations, has been reconciled in the electronic record per guidelines. Refer to the
patient's paper chart under the miscellaneous tab to see printed paper medication records and downtime forms.
[2025-02-06] MEDS: NOVOLOG FLEXPEN-LOW RESISTANCE SC (06:54)
[2025-02-06] MEDS: VITAMIN D3 (cholecalciferol) 50 MCG PO (08:00)
[2025-02-06] MEDS: ASPIR LOW (ENTERIC COATED) 81 MG PO (08:00)
[2025-02-06] MEDS: ZYRTEC 10 MG PO (08:00)
[2025-02-06] MEDS: GLUCOPHAGE 500 MG PO ×2 (08:01→18:11)
[2025-02-06] MEDS: CRESTOR 5 MG PO (08:01)
[2025-02-06] MEDS: VITAMIN B-12 1000 MCG PO (08:01)
[2025-02-06] MEDS: NORVASC 5 MG PO (08:01)
[2025-02-06] MEDS: OSCAL CAL 500 500 MG PO (08:01)
[2025-02-06] MEDS: ZADITOR 1 DROP OPHTH ×2 (08:03→19:29)
[2025-02-06 08:16] LABS: Glucose - Point of Care 123 mg/dl (70-99)
[2025-02-06 08:19] VITALS: BP 123/68
--- NOTE | 2025-02-06 10:44 | CM ---
Pt/family are now requesting transfer to [facility]; Pt has been referred an accepted for transfer today.
CM spoke with Colette at [facility] to change the SNF location. Auth #[id number] for 02/06-. CM to receive a call from [facility] with 'final approval' of authorization information.
Plan: Transfer to [facility] today via ambulance following final approval.
[facility] SN[facility]: [phone]
[facility]
[2025-02-06 11:33] LABS: Glucose - Point of Care 176 mg/dl (70-99)
--- NOTE | 2025-02-06 12:26 | W.PN.HOSP.TC ---
Today's Communication/Plan
-
ongoing dispo efforts
Assessment / Plan
Assessment / Plan
Assessment:
AMS - resoled
- Neuro workup showed 'tumefactive demyelination' in MRI brain transiently on steroids but discontinued after LP not suggestive of MS
- C MRI: Nonspecific myelopathy along the left lateral margin of the cervical cord at the C3 level. Acute abnormal enhancement. 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
Multilevel degenerative changes with central canal stenosis compressing the cervical cord, and variable foraminal stenosis.
- T MRI: There is mild loss of height of the T8 vertebral body with mild STIR signal and enhancement consistent with acute/subacute compression fracture. There are apparent short segment foci of T2 hyperintense, nonenhancing signal within the
lateral aspect of the cord at the T10-T11 and T11-T12 levels, possibly related to demyelinating disease or myelitis. There is no associated enhancement.
- Per Neurology; possible Alzheimer vs PD underlying with brain atrophy on neuroimaging. - not able to formally diagnose in acute setting. Chronic progressive encephalopathy. Possible med induced from Dupilumab. Possible rheumatological etiology
with +SHYANN, SS-A.
- no rheumatology inpatient service at , offered [facility] transfer. ALLIZane Salgado opted for no transfer and will pursue palliative (eventually hospice care) - see note from 02/02
- continue ASA
- therapy evals: SNF pending
Multi-drug resistant ESBL E. Coli
- continue Invanz, day 2
New onset type 2 DM
- continue Metformin
- A1c 6.7%
Vitamin B12 deficiency - on replacement
Conjunctivitis
- Tobramycin eye drop
- Zaditor for allergic component
Erythrocytosis
- Hemoconcentration versus ?polycythemia
- received IV fluid and Hb went down slightly
- Monitor hemoglobin
Essential HTN
- continue Norvasc
- HCTZ stopped due to hypokalemia
Hypokalemia
- replete prn
Hypothyroidism
- continue replacement
History of hyperlipidemia
- continue statin
Chronic Rash with pruritis
- on Zyrtec
- continue Hydroxyzine prn
- Dupilumab on hold
Diarrhea
- stool studies negative
- prn Imodium
DVT ppx: Lovenox
Code: Full
Anticipated Discharge: 24 - 48 hours
Subjective/Interval History
-
Date of Service: February 06, 2025
resting comfortably
awaiting SNF
continues to pull the Peripheral IVs
Objective Data
-
Vital Signs:
Vital Signs
Temp Pulse Resp BP Pulse Ox
97.8 F 101 17 123/68 98
02/06/25 08:19 02/06/25 08:19 02/06/25 08:19 02/06/25 08:19 02/06/25 08:19
I&O
02/05/25 02/06/25 02/07/25
06:59 06:59 06:59
Intake Total 540 / 540
Balance 540 / 540
Physical Exam
-
General: No Apparent Distress
HEENT: Normocephalic and Atraumatic
Respiratory: Negative Wheezes
Cardiac: Regular Rhythm and S1/S2
GI: Soft
Musculoskeletal: No Edema
Psych: Calm
Data Reviewed
-
Total Time Spent with Patient (in minutes): 42
Labs: Labs Reviewed by me
[2025-02-06] MEDS: NOVOLOG FLEXPEN-LOW RESISTANCE 1 UNITS SC ×2 (13:09→18:10)
[2025-02-06] MEDS: INVANZ IV (13:10)
--- NOTE | 2025-02-06 14:37 | W.DS.TRANS ---
DC Summary - Transport [employer]
-
Discharge Instructions:
Discharge Diagnosis/Procedures Acute metabolic encephalopathy on chronic
dementia
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
New onset diabetes mellitus
ESBL UTI
Diet Diabetic, Carb Controlled
Activity With assistance
Other Services OT,PT
Instructions:
Stand-Alone Forms:
Changes to Home Medications: No
Discharge Medications:
DC Medications w/original date entered in [employer]
levothyroxine 25 mcg tablet 25 mcg PO DAILY Thyroid 12/21/18
multivitamin with folic acid 400 mcg tablet (Tab-A-Mata) 1 tab PO DAILY Supplement 12/21/18
amlodipine 5 mg tablet 5 mg PO DAILY Blood Pressure 01/24/25
calcium carbonate 400 mg PO DAILY Gastrointestinal Issue 01/24/25
cetirizine 10 mg tablet 10 mg PO DAILY Allergies 01/24/25
cholecalciferol (vitamin D3) 50 mcg (2,000 unit) tablet 50 mcg PO DAILY Supplement 01/24/25
coenzyme Q10 100 mg capsule (Co Q-10) 100 mg PO DAILY Supplement 01/24/25
fexofenadine 180 mg tablet 180 mg PO DAILYPRN PRN itching/allergies 01/24/25
omega 0-bje-siz-fish oil 1,000 mg (120 mg-180 mg) capsule (Fish Oil) 1 cap PO DAILY Supplement 01/24/25
rosuvastatin 5 mg tablet 5 mg PO DAILY cholesterol 01/24/25
aspirin 81 mg tablet,delayed release 81 mg PO DAILY #100 tabs 02/06/25
cyanocobalamin (vitamin B-12) 1,000 mcg tablet (Vitamin B-12) 1,000 mcg PO DAILY #100 tabs 02/06/25
ertapenem 1 gram solution for injection 1 g IM Q24H #5 ea 02/06/25
hydroxyzine HCl 25 mg tablet 25 mg PO QIDPRN PRN itching #20 tabs 02/06/25
ketotifen fumarate 0.025 % (0.035 %) eye drops 1 drp ophthalmic (eye) BID #5 mL 02/06/25
metformin 500 mg tablet 500 mg PO BID@0800,1700 #60 tabs 02/06/25
polyvinyl alcohol-povidone (PF) 1.4 %-0.6 % eye drops in a dropperette (Refresh Classic (PF)) 1 drp ophthalmic (eye) QIDPRN PRN dryness #30 ea 02/06/25
risperidone 0.25 mg tablet 0.25 mg PO Q6HPRN PRN agitation #20 tabs 02/06/25
Home Medication Changes
Pending Results: No
Total time spent discharging patient (in min): 41
[2025-02-06 15:21] VITALS: BP 122/72
[2025-02-06 16:49] LABS: Glucose - Point of Care 159 mg/dl (70-99)
[2025-02-06] MEDS: LOVENOX 40 MG SC (18:11)
[2025-02-07 01:55] VITALS: BP 139/85
[2025-02-07] MEDS: SYNTHROID 25 MCG PO (05:11)
[2025-02-07 07:50] VITALS: BP 126/77
[2025-02-07 08:10] LABS: Glucose - Point of Care 129 mg/dl (70-99)
[2025-02-07] MEDS: OSCAL CAL 500 500 MG PO (08:26)
[2025-02-07] MEDS: NOVOLOG FLEXPEN-LOW RESISTANCE SC ×2 (08:26→12:08)
[2025-02-07] MEDS: ASPIR LOW (ENTERIC COATED) 81 MG PO (08:26)
[2025-02-07] MEDS: NORVASC 5 MG PO (08:26)
[2025-02-07] MEDS: CRESTOR 5 MG PO (08:26)
[2025-02-07] MEDS: ZYRTEC 10 MG PO (08:26)
[2025-02-07] MEDS: VITAMIN D3 (cholecalciferol) 50 MCG PO (08:26)
[2025-02-07] MEDS: GLUCOPHAGE 500 MG PO ×2 (08:26→17:33)
[2025-02-07] MEDS: VITAMIN B-12 1000 MCG PO (08:26)
[2025-02-07] MEDS: ZADITOR 1 DROP OPHTH ×2 (08:28→20:41)
[2025-02-07] MEDS: XYLOCAINE 1% 3.2 ML INJ (10:04)
[2025-02-07 12:00] LABS: Glucose - Point of Care 137 mg/dl (70-99)
--- NOTE | 2025-02-07 15:01 | W.PN.HOSP.TC ---
Today's Communication/Plan
-
Etesting for fosfomycin susceptibility pending
dc planning
Assessment / Plan
Assessment / Plan
Assessment:
AMS - resoled
- Neuro workup showed 'tumefactive demyelination' in MRI brain transiently on steroids but discontinued after LP not suggestive of MS
- C MRI: Nonspecific myelopathy along the left lateral margin of the cervical cord at the C3 level. Acute abnormal enhancement. 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
Multilevel degenerative changes with central canal stenosis compressing the cervical cord, and variable foraminal stenosis.
- T MRI: There is mild loss of height of the T8 vertebral body with mild STIR signal and enhancement consistent with acute/subacute compression fracture. There are apparent short segment foci of T2 hyperintense, nonenhancing signal within the
lateral aspect of the cord at the T10-T11 and T11-T12 levels, possibly related to demyelinating disease or myelitis. There is no associated enhancement.
- Per Neurology; possible Alzheimer vs PD underlying with brain atrophy on neuroimaging. - not able to formally diagnose in acute setting. Chronic progressive encephalopathy. Possible med induced from Dupilumab. Possible rheumatological etiology
with +SHYANN, SS-A.
- no rheumatology inpatient service at , offered [facility] transfer. MICAELA Salgado opted for no transfer and will pursue palliative (eventually hospice care) - see note from 02/02
- continue ASA
- therapy evals: SNF pending
Multi-drug resistant ESBL E. Coli
- continue Invanz, day 3
- Etesting for fosfomycin susceptibility pending
New onset type 2 DM
- continue Metformin
- A1c 6.7%
Vitamin B12 deficiency - on replacement
Conjunctivitis
- Tobramycin eye drop
- Zaditor for allergic component
Erythrocytosis
- Hemoconcentration versus ?polycythemia
- received IV fluid and Hb went down slightly
- Monitor hemoglobin
Essential HTN
- continue Norvasc
- HCTZ stopped due to hypokalemia
Hypokalemia
- replete prn
Hypothyroidism
- continue replacement
History of hyperlipidemia
- continue statin
Chronic Rash with pruritis
- on Zyrtec
- continue Hydroxyzine prn
- Dupilumab on hold
Diarrhea
- stool studies negative
- prn Imodium
DVT ppx: Lovenox
Code: Full
Anticipated Discharge: > 48 hours
Subjective/Interval History
-
Date of Service: February 07, 2025
denies any new complaints at present
Objective Data
-
Vital Signs:
Vital Signs
Temp Pulse Resp BP Pulse Ox
98.0 F 89 17 126/77 97
02/07/25 07:50 02/07/25 07:50 02/07/25 07:50 02/07/25 07:50 02/07/25 07:50
Physical Exam
-
General: No Apparent Distress
HEENT: Normocephalic and Atraumatic
Respiratory: Negative Wheezes
Cardiac: Regular Rhythm and S1/S2
GI: Soft and Nontender
Neuro: AO x 3
Psych: Calm
Data Reviewed
-
Total Time Spent with Patient (in minutes): 41
Labs: Labs Reviewed by me
[2025-02-07 15:41] VITALS: BP 126/81
[2025-02-07 16:43] LABS: Glucose - Point of Care 159 mg/dl (70-99)
--- NOTE | 2025-02-07 16:54 | PTCARENOTE ---
patient with less urinary frequency and urgency today, still impulsive with trying to transfer oob with need to go to [facility] by self but able to be redirected most of the time. sat oob multiple times in chair, vss, will continue to monitor.
[2025-02-07] MEDS: LOVENOX 40 MG SC (17:32)
[2025-02-07] MEDS: NOVOLOG FLEXPEN-LOW RESISTANCE 1 UNITS SC (17:34)
[2025-02-07] MEDS: ATIVAN 1 MG PO (20:41)
[2025-02-07 22:19] LABS: Glucose - Point of Care 135 mg/dl (70-99)
[2025-02-07 23:00] VITALS: BP 167/85
[2025-02-08] MEDS: SYNTHROID 25 MCG PO (06:28)
[2025-02-08 06:59] VITALS: BMI 29.1
[2025-02-08 08:45] LABS: Glucose - Point of Care 151 mg/dl (70-99)
--- NOTE | 2025-02-08 08:56 | CM ---
Addendum entered by Colette Myers 02/08/25 12:41:
Addie confirmed pt can come today at 12 noon to [facility] after verifying antibiotic with their pharmacy. CM spoke with spouse who is agreeable. Updated clinical sent to Addie via [facility] and also auth info.
Original Note:
Call to [facility] admissions liaison pending response on bed/auth update.
[2025-02-08 08:58] VITALS: BP 135/67
--- NOTE | 2025-02-08 09:35 | W.PN.HOSP.TC ---
Today's Communication/Plan
-
dc to SNF if bed/auth confirmed
Assessment / Plan
Assessment / Plan
Assessment:
AMS - resoled
- Neuro workup showed 'tumefactive demyelination' in MRI brain transiently on steroids but discontinued after LP not suggestive of MS
- C MRI: Nonspecific myelopathy along the left lateral margin of the cervical cord at the C3 level. Acute abnormal enhancement. 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
Multilevel degenerative changes with central canal stenosis compressing the cervical cord, and variable foraminal stenosis.
- T MRI: There is mild loss of height of the T8 vertebral body with mild STIR signal and enhancement consistent with acute/subacute compression fracture. There are apparent short segment foci of T2 hyperintense, nonenhancing signal within the
lateral aspect of the cord at the T10-T11 and T11-T12 levels, possibly related to demyelinating disease or myelitis. There is no associated enhancement.
- Per Neurology; possible Alzheimer vs PD underlying with brain atrophy on neuroimaging. - not able to formally diagnose in acute setting. Chronic progressive encephalopathy. Possible med induced from Dupilumab. Possible rheumatological etiology
with +SHYANN, SS-A.
- no rheumatology inpatient service at , offered [facility] transfer. MICAELA Salgado opted for no transfer and will pursue palliative (eventually hospice care) - see note from 02/02
- continue ASA
- therapy evals: SNF pending
Multi-drug resistant ESBL E. Coli
- s/p 3 days Invanz
- E-test confirms fosfomycin susceptibility; 3g today and 3g 02/11 to finish course
New onset type 2 DM
- continue Metformin
- A1c 6.7%
Vitamin B12 deficiency - on replacement
Conjunctivitis
- Tobramycin eye drop
- Zaditor for allergic component
Erythrocytosis
- Hemoconcentration versus ?polycythemia
- received IV fluid and Hb went down slightly
- Monitor hemoglobin
Essential HTN
- continue Norvasc
- HCTZ stopped due to hypokalemia
Hypokalemia
- replete prn
Hypothyroidism
- continue replacement
History of hyperlipidemia
- continue statin
Chronic Rash with pruritis
- on Zyrtec
- continue Hydroxyzine prn
- Dupilumab on hold
Diarrhea
- stool studies negative
- prn Imodium
DVT ppx: Lovenox
Code: Full
More than 30 minutes spent in discharge including
Final examination of the patient
Summarizing hospital stay
Instructions for continuing care to all relevant caregivers
Preparation of discharge records, prescriptions, and referral forms
Total time spent (in minutes): 41
Anticipated Discharge: Today
Subjective/Interval History
-
Date of Service: February 08, 2025
resting comfortably
no complaints
Objective Data
-
Vital Signs:
Vital Signs
Temp Pulse Resp BP Pulse Ox
97.2 F 70 21 135/67 98
02/08/25 08:58 02/08/25 08:58 02/08/25 08:58 02/08/25 08:58 02/08/25 08:58
I&O
02/07/25 02/08/25 02/09/25
06:59 06:59 06:59
Intake Total 1020 / 1020
Balance 1020 / 1020
Physical Exam
-
General: No Apparent Distress
HEENT: Normocephalic and Atraumatic
Respiratory: Negative Wheezes
Cardiac: Regular Rhythm and S1/S2
GI: Soft and Nontender
Genito-urinary: No Costovertebral Tender
Neuro: Awake
Psych: Calm and Apparent Dementia
Data Reviewed
-
Total Time Spent with Patient (in minutes): 41
Labs: Labs Reviewed by me
--- NOTE | 2025-02-08 09:37 | W.DS.TRANS ---
DC Summary - [employer]
-
Discharge Instructions:
Discharge Diagnosis/Procedures Acute metabolic encephalopathy on chronic
dementia
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
New onset diabetes mellitus
ESBL UTI
Diet Diabetic, Carb Controlled
Activity With assistance
Other Services OT,PT
Instructions:
Stand-Alone Forms:
Changes to Home Medications: No
Discharge Medications:
DC Medications w/original date entered in [employer]
levothyroxine 25 mcg tablet 25 mcg PO DAILY Thyroid 12/21/18
multivitamin with folic acid 400 mcg tablet (Tab-A-Mata) 1 tab PO DAILY Supplement 12/21/18
amlodipine 5 mg tablet 5 mg PO DAILY Blood Pressure 01/24/25
calcium carbonate 400 mg PO DAILY Gastrointestinal Issue 01/24/25
cetirizine 10 mg tablet 10 mg PO DAILY Allergies 01/24/25
cholecalciferol (vitamin D3) 50 mcg (2,000 unit) tablet 50 mcg PO DAILY Supplement 01/24/25
coenzyme Q10 100 mg capsule (Co Q-10) 100 mg PO DAILY Supplement 01/24/25
fexofenadine 180 mg tablet 180 mg PO DAILYPRN PRN itching/allergies 01/24/25
omega 3-lus-pou-fish oil 1,000 mg (120 mg-180 mg) capsule (Fish Oil) 1 cap PO DAILY Supplement 01/24/25
rosuvastatin 5 mg tablet 5 mg PO DAILY cholesterol 01/24/25
aspirin 81 mg tablet,delayed release 81 mg PO DAILY #100 tabs 02/06/25
cyanocobalamin (vitamin B-12) 1,000 mcg tablet (Vitamin B-12) 1,000 mcg PO DAILY #100 tabs 02/06/25
hydroxyzine HCl 25 mg tablet 25 mg PO QIDPRN PRN itching #20 tabs 02/06/25
ketotifen fumarate 0.025 % (0.035 %) eye drops 1 drp ophthalmic (eye) BID #5 mL 02/06/25
metformin 500 mg tablet 500 mg PO BID@0800,1700 #60 tabs 02/06/25
polyvinyl alcohol-povidone (PF) 1.4 %-0.6 % eye drops in a dropperette (Refresh Classic (PF)) 1 drp ophthalmic (eye) QIDPRN PRN dryness #30 ea 02/06/25
risperidone 0.25 mg tablet 0.25 mg PO Q6HPRN PRN agitation #20 tabs 02/06/25
fosfomycin tromethamine 3 gram oral packet 3 g PO ONCE #1 ea 02/08/25
Home Medication Changes
Pending Results: No
Total time spent discharging patient (in min): 41
[2025-02-08] MEDS: NOVOLOG FLEXPEN-LOW RESISTANCE 1 UNITS SC (09:42)
[2025-02-08] MEDS: CRESTOR 5 MG PO (09:43)
[2025-02-08] MEDS: OSCAL CAL 500 500 MG PO (09:43)
[2025-02-08] MEDS: ASPIR LOW (ENTERIC COATED) 81 MG PO (09:43)
[2025-02-08] MEDS: ZYRTEC 10 MG PO (09:43)
[2025-02-08] MEDS: GLUCOPHAGE 500 MG PO (09:43)
[2025-02-08] MEDS: VITAMIN D3 (cholecalciferol) 50 MCG PO (09:44)
[2025-02-08] MEDS: NORVASC 5 MG PO (09:44)
[2025-02-08] MEDS: VITAMIN B-12 1000 MCG PO (09:44)
[2025-02-08] MEDS: MONUROL 3 GM PO (09:45)
[2025-02-08] MEDS: ZADITOR 1 DROP OPHTH (09:45)
[2025-02-08] MEDS: IMODIUM 2 MG PO (11:43)
--- NOTE | 2025-02-08 12:08 | PTCARENOTE ---
Report called to [facility] @[phone]. Number given to [employer] to call back when nurse available.
== END 2025-02-08 11:59 | DRG 58 ==
LOC: 3 WEST ACU 17:42
PROVIDERS: Emergency Medicine; General Practice; Nurse Practitioner Family; Radiology Diagnostic Radiology; ADMITTING PHYSICIAN Hospitalist; ATTENDING PHYSICIAN Internal Medicine; CONSULT PHYSICIAN Psychiatry & Neurology Clinical Neurophysiology; EMERGENCY PHYSICIAN Student in an Organized Health Care Education/Training Program; FAMILY PHYSICIAN Family Medicine; OTHER PHYSICIAN Psychiatry & Neurology Neurology; OTHER PHYSICIAN Psychiatry & Neurology Psychiatry
PROC: 009U3ZX Drainage of Spinal Canal, Percutaneous Approach, Diagnostic (ICD-10-PCS; 2025-01-27)
DX: G37.9 Demyelinating disease of central nervous system, unspecified (principal); G92.8 Other toxic encephalopathy; F02.84 Dementia in other diseases classified elsewhere, unspecified severity, with anxiety; F02.83 Dementia in other diseases classified elsewhere, unspecified severity, with mood disturbance; Z16.12 Extended spectrum beta lactamase (ESBL) resistance; N39.0 Urinary tract infection, site not specified; Z16.24 Resistance to multiple antibiotics; I10 Essential (primary) hypertension; E03.9 Hypothyroidism, unspecified; E78.00 Pure hypercholesterolemia, unspecified; Z78.1 Physical restraint status; Z81.8 Family history of other mental and behavioral disorders; G20.C Parkinsonism, unspecified; F32.9 Major depressive disorder, single episode, unspecified; E87.6 Hypokalemia; E11.9 Type 2 diabetes mellitus without complications; E53.8 Deficiency of other specified B group vitamins; H10.9 Unspecified conjunctivitis; D75.1 Secondary polycythemia; B96.20 Unspecified Escherichia coli [E. coli] as the cause of diseases classified elsewhere; Z75.1 Person awaiting admission to adequate facility elsewhere; F43.10 Post-traumatic stress disorder, unspecified; L29.9 Pruritus, unspecified; Z79.899 Other long term (current) drug therapy; Z85.3 Personal history of malignant neoplasm of breast
CPT/HCPCS: 62328; 70450; 70551; 70552; 72156; 72157; 74177; 80048; 80053; 80061; 81003; 81015; 82040; 82042; 82140; 82164; 82607; 82746; 82784; 82945; 82962; 83036; 83090; 83916; 84155; 84157; 84165; 84425; 84443; 85025; 85027; 85610; 86038; 86039; 86235; 86780; 87045; 87046; 87077; 87086; 87181; 87186; 87324; 87389; 87427; 87449; 87476; 87798; 88108; 89051; 89055; 92526; 92610; 93005; 97116; 97163; 97167; 97530; 97535; 99285; A9575; J1335; Q9967